=== PATIENT | male | born 1955 | race African-American/Black ===

== ENCOUNTER 2017-09-22 21:37 | Inpatient (IN) | payer MEDICAID ==
[~2017-09-22] VITALS: Ht 185.4 cm; Wt 96.2 kg
[2017-09-22] MEDS ORDERED: ATORVASTATIN CA10 MG GT (21:52)
[2017-09-22] MEDS ORDERED: ACETAMINOP160 MG/5 M GT (21:52)
[2017-09-22] MEDS ORDERED: JEVITY 1.2 CA1500 ML GT (21:52)
[2017-09-22] MEDS ORDERED: ELIQUIS5 MG GT (21:52)
[2017-09-22] MEDS ORDERED: GUAIFENESIN-CO118 M1 GT (21:52)
[2017-09-22] MEDS ORDERED: DUONEB 0.5-3(2.53 ML HHN (21:52)
[2017-09-22] MEDS ORDERED: KEPPRA LIQ100 MG/1 M ORAL (21:52)
[2017-09-22] MEDS ORDERED: TEGRETOL200 MG PO (21:52)
[2017-09-22] MEDS ORDERED: levETIRAcetam 500mg/NS100ml 100 ML IVPB ONE (22:00)
[2017-09-22 22:13] LABS: BASOPHILS % (AUTO) 0.4 % (0.0-2.0); EOSINOPHILS % (AUTO) 0.1 % (0.0-3.0); HEMATOCRIT 40.1 % (42.0-52.0); HEMOGLOBIN 12.6 G/DL (14.2-18.0); LYMPHOCYTES % (AUTO) 15.6 % (20.0-45.0); MEAN CORPUSCULAR VOLUME 80 FL (80-99); MONOCYTES % (AUTO) 4.3 % (1.0-10.0); NEUTROPHILS % (AUTO) 79.7 % (45.0-75.0); PLATELET COUNT 103 K/UL (150-450); RED BLOOD COUNT 5.02 M/UL (4.70-6.10); RED CELL DISTRIBUTION WIDTH 16.6 % (11.6-14.8); WHITE BLOOD COUNT 9.1 K/UL (4.8-10.8)
[2017-09-22 22:14] LABS: ANION GAP 19 mmol/L (5-15); BLOOD UREA NITROGEN 26 mg/dL (7-18); CALCIUM 9.3 MG/DL (8.5-10.1); CARBON DIOXIDE 24 MMOL/L (21-32); CHLORIDE 96 MMOL/L (98-107); CREATININE 0.8 MG/DL (0.55-1.30); POTASSIUM 3.3 MMOL/L (3.5-5.1); SODIUM 139 MMOL/L (136-145)
[2017-09-22] MEDS ORDERED: Albuterol ud Inhalation HHN ONE (22:15)
[2017-09-22 22:30] LABS: ALANINE AMINOTRANSFERASE 69 U/L (12-78); ALBUMIN/GLOBULIN RATIO 0.6 (1.0-2.7); ALKALINE PHOSPHATASE 215 U/L (46-116); ASPARTATE AMINO TRANSFERASE 45 U/L (15-37); BILIRUBIN,TOTAL 0.2 MG/DL (0.2-1.0); CKMB 4.6 NG/ML (0.0-3.6); CREATINE KINASE 64 U/L (26-308)
[2017-09-22 23:00] VITALS: BP 93/54
[2017-09-22] MEDS ORDERED: Cefepime HCl 1 GM in D5W 55 ML IVPB ONE (23:00)
[2017-09-23] VITALS (7 sets, daily range): BP systolic 134–173; BP diastolic 59–82
--- NOTE | 2017-09-23 01:43 | Emergency Room Report ---
History of Present Illness General Chief Complaint: Seizure Source: Family Member, Medical Record, EMS Present Illness HPI This is a 62-year-old male who is a group home patient is bedbound. He has multiple medical problems including CVA and seizure. He presents with chief complaint of seizure. According to group home staff, he had a seizure for about 10 minutes. He was given Versed intranasally and 5 mg IV. He was brought here and was sedated and unable to give a response. Similar symptom in the past. No complaint of fever chills. No nausea no vomiting. Allergies: Coded Allergies: PHENYTOIN (Unverified Allergy, Unknown, 09/22/17) Patient History Past Medical History: see triage record, old chart reviewed, DM, HTN, CVA/TIA, seizures Past Surgical History: other Pertinent Family History: none Social History: Denies: smoking Immunizations: other Reviewed Nursing Documentation: PMH: Agreed; PSxH: Agreed Nursing Documentation-PMH Past Medical History: No History, Except For Hx Hypertension: Yes Hx Gastrointestinal Problems: Yes - gtube, peptic ulcer, Hx Cerebrovascular Accident: Yes - TIA, left dominant side weakness Hx Seizures: Yes - unspecified convulsions Review of Systems All Other Systems: limited - Nonverbal Physical Exam Vital Signs Date Time Temp Pulse Resp B/P (MAP) Pulse Ox O2 Delivery O2 Flow Rate FiO2 09/22/17 21:22 106 30 138/70 88 Non-Rebreather 15.0 09/22/17 22:32 100 vitals with hypoxia Sp02 EP Interpretation: abnormal General Appearance: moderate distress, Stupor Head: normocephalic, atraumatic Eyes: right eye other - Right eye is cloudy ENT: dry mucus membranes Neck: full range of motion, supple, no meningismus Respiratory: respiratory distress, decreased breath sounds, rhonchi - Right side Cardiovascular #1: regular rate, rhythm, no murmur Gastrointestinal: normal bowel sounds, non tender, no mass, no organomegaly, no bruit, non-distended Genitourinary: normal inspection Musculoskeletal: other - Stiff. No edema Neurologic: other - Upper extremities with no response to painful stimuli. lower extremeties withdraw to painful stimuli. Psychiatric: other - No response Skin: warm/dry Procedures Critical Care Time Critical Care Time Critical care is mandated in this patient who presented with respiratory failure requiring BiPAP. Patient require my urgent intervention to attenuate the risks of metabolic collapse which may lead to cardiovascular collapse and . Critical care time is 35 minutes excluding any reportable procedure. Critical care time included evaluation, multiple reevaluation, looking at old charts, interpreting laboratory and diagnostic data, discussing case with patient and family and consultants, and charting. Medical Decision Making Diagnostic Impression: Primary Impression: Epileptic seizure, generalized Additional Impressions: Sepsis Qualified Codes: A41.9 - Sepsis, unspecified organism Healthcare-associated pneumonia Respiratory failure with hypoxia Qualified Codes: J96.21 - Acute and chronic respiratory failure with hypoxia Aspiration pneumonia Qualified Codes: J69.0 - Pneumonitis due to inhalation of food and vomit Lactic acidosis ER Course Patient had seizure. He also has aspiration pneumonia. Antibiotic started. I try to pass a Alvarez but unable to pass multiple different size Avlarez. His initial lactic acid may be secondary to seizure. Improved after IV fluid. Because of the BiPAP and hypoxia, he is unstable for transfer. Will admit here under the service of Dr. Sharpe. Laboratory Tests Test 09/22/17 21:45 09/22/17 22:39 09/22/17 23:40 White Blood Count 9.1 K/UL (4.8-10.8) Red Blood Count 5.02 M/UL (4.70-6.10) Hemoglobin 12.6 G/DL (14.2-18.0) L Hematocrit 40.1 % (42.0-52.0) L Mean Corpuscular Volume 80 FL (80-99) Mean Corpuscular Hemoglobin 25.0 PG (27.0-31.0) L Mean Corpuscular Hemoglobin Concent 31.4 G/DL (32.0-36.0) L Red Cell Distribution Width 16.6 % (11.6-14.8) H Platelet Count 103 K/UL (150-450) L Mean Platelet Volume 10.5 FL (6.5-10.1) H Neutrophils (%) (Auto) 79.7 % (45.0-75.0) H Lymphocytes (%) (Auto) 15.6 % (20.0-45.0) L Monocytes (%) (Auto) 4.3 % (1.0-10.0) Eosinophils (%) (Auto) 0.1 % (0.0-3.0) Basophils (%) (Auto) 0.4 % (0.0-2.0) Prothrombin Time 10.9 SEC (9.30-11.50) Prothromb Time International Ratio 1.0 (0.9-1.1) Activated Partial Thromboplast Time 33 SEC (23-33) Sodium Level 139 MMOL/L (136-145) Potassium Level 3.3 MMOL/L (3.5-5.1) L Chloride Level 96 MMOL/L (98-107) L Carbon Dioxide Level 24 MMOL/L (21-32) Anion Gap 19 mmol/L (5-15) H Blood Urea Nitrogen 26 mg/dL (7-18) H Creatinine 0.8 MG/DL (0.55-1.30) Estimat Glomerular Filtration Rate > 60 mL/min (>60) Glucose Level 112 MG/DL (74-106) H Lactic Acid Level 12.40 mmol/L (0.4-2.0) H 2.30 mmol/L (0.66-2.22) H Calcium Level 9.3 MG/DL (8.5-10.1) Total Bilirubin 0.2 MG/DL (0.2-1.0) Aspartate Amino Transf (AST/SGOT) 45 U/L (15-37) H Alanine Aminotransferase (ALT/SGPT) 69 U/L (12-78) Alkaline Phosphatase 215 U/L (46-116) H Total Creatine Kinase 64 U/L (26-308) Creatine Kinase MB 4.6 NG/ML (0.0-3.6) H Creatine Kinase MB Relative Index 7.1 Troponin I 0.018 ng/mL (0.000-0.056) Total Protein 8.2 G/DL (6.4-8.2) Albumin 3.0 G/DL (3.4-5.0) L Globulin 5.2 g/dL Albumin/Globulin Ratio 0.6 (1.0-2.7) L Carbamazepine (Tegretol) Level 6.8 ug/mL (4.0-12.0) Arterial Blood pH 7.330 (7.350-7.450) Arterial Blood Partial Pressure CO2 54.2 mmHg (35.0-45.0) H Arterial Blood Partial Pressure O2 57.5 mmHg (75.0-100.0) L Arterial Blood HCO3 27.9 mmol/L (22.0-26.0) H Arterial Blood Oxygen Saturation 86.7 % (92.0-98.0) L Arterial Blood Base Excess 1.1 Jed Test Positive Lab Results Impression labs with lactic acidosis EKG Diagnostic Results Rate: tachycardiac Rhythm: NSR ST Segments: other - NSST changes Rhythm Strip Diag. Results Rhythm Strip Time: 01:41 EP Interpretation: yes Rate: 73 Rhythm: NSR, no PVC's, no ectopy Chest X-Ray Diagnostic Results Chest X-Ray Diagnostic Results : Chest X-Ray Ordered: Yes # of Views/Limited/Complete: 1 View Indication: Shortness of Breath EP Interpretation: Yes Interpretation: no effusion, no pneumothorax, other - RLL interstitial infiltrates Impression: Other Electronically Signed by: Kody Marques MD CT/MRI/US Diagnostic Results CT/MRI/US Diagnostic Results : Imaging Test Ordered: CT head Impression Read by radiologist. chronic changes. Last Vital Signs Date Time Temp Pulse Resp B/P (MAP) Pulse Ox O2 Delivery O2 Flow Rate FiO2 09/23/17 01:06 15.0 80 09/23/17 01:06 80 29 100 Facial 09/22/17 21:22 138/70 Status: improved Disposition: ADMITTED INPATIENT Condition: Serious Referrals: NOT CHOSEN NAVYA/,REFERRING (PCP) KODY MARQUES M.D. Sep 23, 2017 01:43
[2017-09-23] MEDS ORDERED: Acetaminophen 650mg/20.3ml GT PRN ×2 (03:45)
[2017-09-23 03:47] LABS: BILIRUBIN, URINE NEGATIVE (NEGATIVE); GLUCOSE, URINE (UA) NEGATIVE (NEGATIVE); KETONES,URINE NEGATIVE (NEGATIVE); LEUKOCYTE ESTERASE ,URINE 3+ (NEGATIVE); NITRITE,URINE NEGATIVE (NEGATIVE); PH,URINE 7 (4.5-8.0); PROTEIN,URINE 4+ (NEGATIVE); UROBILINOGEN,URINE NORMAL MG/DL (0.0-1.0)
[2017-09-23 03:52] LABS: APPEARANCE,URINE CLOUDY; COLOR,URINE YELLOW
[2017-09-23] MEDS: carBAMazepine 200mg tab GT SCH ×3 (05:48→21:06)
[2017-09-23] MEDS: Albuterol/Ipratropium 3ml neb HHN SCH ×4 (06:51→23:40)
[2017-09-23] MEDS: LORazepam Inj 2mg/ml 1ml IV PRN ×2 (07:09→12:57)
[2017-09-23] MEDS ORDERED: Cefepime 2gm in D5W 55ml IVPB SCH (09:00)
[2017-09-23] MEDS: Eliquis 2.5mg tablet GT SCH ×2 (09:01→17:50)
[2017-09-23] MEDS: levETIRAcetam 500mg/5ml Liquid GT SCH ×2 (09:01→17:49)
--- NOTE | 2017-09-23 09:29 | Diagnostic Imaging Report ---
Indication: Seizure Technique: Continuous helical CT scanning of the head was performed utilizing automated exposure control without intravenous contrast material. Axial and coronal reconstructions were obtained. Comparison: None CT dose: Total DLP 1467.58 mGycm; CTDI vol 70.38 mGy Findings: There is no acute intracranial hemorrhage. No midline shift. There is severe encephalomalacia with CSF attenuation involving the right frontal, parietal and temporal lobes. Some encephalomalacia is noted in the left frontal lobe as well. Findings are likely due to chronic ischemic, postoperative or posttraumatic changes. Cannot exclude acute on chronic ischemia. Clinical correlation and follow-up recommended. There is ex vacuo dilatation of the lateral ventricles. There is prior right frontoparietal craniotomy. No acute depressed calvarial fracture. Mastoid air cells are clear. Paranasal sinuses grossly clear. IMPRESSION: Extensive chronic-appearing postischemic/postoperative/posttraumatic changes as above. Cannot exclude acute on chronic ischemia. Clinical correlation recommended. More sensitive evaluation with MRI can be obtained as clinically indicated. This corresponds with the statrad preliminary report. The CT scanner at [facility] is accredited by the [employer] and the scans are performed using protocols designed to limit radiation exposure to as low as reasonably achievable to attain images of sufficient resolution adequate for diagnostic evaluation.
--- NOTE | 2017-09-23 12:00 | History and Physical Report ---
DATE OF ADMISSION: 09/23/2017 HISTORY OF PRESENT ILLNESS: This is a 62-year-old male who is a retirement resident. He was brought to the hospital with seizures. He was seen and evaluated by the ER physician. He was also thought to have pneumonia. He was placed on BiPAP and admitted to [facility]. Overnight, the patient has had several seizures. He has received Versed and also Ativan this morning. He has been resumed on his home medications. MEDICATIONS: His home medications include Tylenol, DuoNebs, Eliquis, Lipitor, Tegretol, Keppra. PAST MEDICAL HISTORY: Notable for chronic gastrostomy, seizure disorder, hypertension, hyperlipidemia, osteoporosis, chronic anticoagulation use, disease, history of GI hemorrhage, previous UTI, previous CVA, hemiplegia of left side. ALLERGIES: Listed to Dilantin . PAST SURGERIES: Gastrostomy tube placement only. PHYSICAL EXAMINATION: GENERAL: Reveals a 62-year-old male. At this time, he is poorly responsive. He received Ativan earlier today. He is on BiPAP. VITAL SIGNS: Blood pressure at this time is 130/60, heart rate is 64, respirations 18, O2 saturation is 92% on BiPAP. HEENT: Unremarkable. CHEST: Clear breath sounds bilaterally with normal heart sounds. ABDOMEN: Soft. EXTREMITIES: There is no appreciable edema. SKIN: There is a G-tube noted. LABORATORY DATA: Lab testing shows hemoglobin 12.6, white count is normal, platelet count is 103,000. Chemistries are notable for potassium 3.3, creatinine 0.8, BUN 26, lactic acid 12.4 now dropped to 2.3, alkaline phosphatase 215, AST 45, albumin of 3. Coags are negative. Urinalysis shows too numerous to count . Most recent ABG, pH 7.13, pCO2 92, pO2 72. IMPRESSION: 1. Respiratory acidosis. 2. Acute respiratory failure. 3. Sepsis. 4. UTI. 5. Probable pneumonia. 6. Seizure disorder. 7. Previous CVA. 8. Aspiration pneumonia. 9. Hypertension. DISCUSSION: Presently, the patient is doing poorly on BiPAP and I suspect he will require to be intubated. He has received Ativan recently. I will check another ABG. If the patient continues to fail, he will be a candidate for intubation. I will contact the patient's family and discuss. Continue broad-spectrum antibiotics. I have consulted ID as well as Neurology. We will continue Keppra. We will follow carefully. Ochoa Sharpe M.D. DR: Reta JOB#: [id number] CC:
--- NOTE | 2017-09-23 12:48 | Diagnostic Imaging Report ---
Indication: Chest pain, seizure Technique: XRAY Chest 1v Comparison: None Findings: Heart size within normal limits. Mediastinal contours are sharp. There is asymmetric interstitial opacification and patchy opacities at the medial right base. No pleural effusion or pneumothorax. There is scoliosis and degenerative change of the spine. No acute osseous abnormality. IMPRESSION: Asymmetric right-sided opacities, most pronounced at the medial right base. Correlate clinically for pneumonia. Given history of seizure, question aspiration.
--- NOTE | 2017-09-23 14:00 | Cardiology Report ---
APPROVED REPORT EKG Measurement Heart [id number] Sinus tachycardia Nonspecific ST and T wave abnormality Abnormal ECG
--- NOTE | 2017-09-23 15:06 | Infectious Diseases Prog Note ---
Assessment/Plan Assessment/Plan Full consult dictated: A) 1) pna, ? aspiration, ? cap, ? HCAP 2) ams, sepsis, hypothermia 3) bipap 4) pmh noted P) 1) zosyn, vancomycin, azithromycin 2) check sputum culture, labs and chest x-ray 3) thank you Subjective Allergies: Coded Allergies: PHENYTOIN (Unverified Allergy, Unknown, 09/22/17) Objective Vital Signs Last 24 Hour Vital Signs Date Time Temp Pulse Resp B/P (MAP) Pulse Ox O2 Delivery O2 Flow Rate FiO2 09/23/17 12:52 96 40 94 Bi-pap 70 09/23/17 12:46 89 34 97 Bi-pap 70 09/23/17 12:44 86 34 97 Facial 70 09/23/17 12:00 70 09/23/17 12:00 75 36 169/79 (109) 96 09/23/17 12:00 Bi-pap 16.0 09/23/17 12:00 72 09/23/17 11:04 75 37 96 Facial 70 09/23/17 11:00 70 09/23/17 08:47 67 17 92 Facial 70 09/23/17 08:00 70 09/23/17 08:00 92.0 65 28 147/76 (99) 93 92.0 09/23/17 08:00 Bi-pap 16.0 09/23/17 07:51 69 09/23/17 07:01 95 31 98 Bi-pap 70 09/23/17 06:52 86 28 94 Facial 70 09/23/17 06:51 86 28 94 Bi-pap 70 09/23/17 06:46 Bi-pap 09/23/17 04:42 69 37 95 Facial 70 09/23/17 04:13 70 09/23/17 04:00 96.0 70 30 173/82 (112) 100 96.0 09/23/17 04:00 80 09/23/17 03:20 95.0 71 14 134/63 100 15.0 70 95.0 09/23/17 02:48 74 14 100 Facial 70 09/23/17 02:35 95.0 71 29 134/63 100 15.0 70 95.0 09/23/17 01:43 100 70 09/23/17 01:38 15.0 70 09/23/17 01:06 15.0 80 09/23/17 01:06 80 29 100 Facial 80 09/23/17 01:00 95.0 79 31 143/59 100 Bi-pap 15.0 80 95.0 09/22/17 23:26 87 31 93 Facial 100 09/22/17 23:00 15.0 100 09/22/17 23:00 95.0 88 31 93/54 100 Bi-pap 15.0 100 95.0 09/22/17 22:50 93 31 88 Non-Rebreather 15.0 100 09/22/17 22:33 93 31 88 Non-Rebreather 15.0 100 09/22/17 22:32 93 31 Non-Rebreather 15.0 100 09/22/17 21:40 106 30 Non-Rebreather 15.0 09/22/17 21:22 106 30 138/70 88 Non-Rebreather 15.0 Height (Feet): 6 Height (Inches): 1.00 Weight (Pounds): 180 Microbiology Date/Time Source Procedure Growth Status 09/22/17 23:44 Rectum Received Laboratory Tests Test 09/22/17 21:45 09/22/17 22:39 09/22/17 23:40 09/23/17 03:33 White Blood Count 9.1 K/UL (4.8-10.8) Red Blood Count 5.02 M/UL (4.70-6.10) Hemoglobin 12.6 G/DL (14.2-18.0) L Hematocrit 40.1 % (42.0-52.0) L Mean Corpuscular Volume 80 FL (80-99) Mean Corpuscular Hemoglobin 25.0 PG (27.0-31.0) L Mean Corpuscular Hemoglobin Concent 31.4 G/DL (32.0-36.0) L Red Cell Distribution Width 16.6 % (11.6-14.8) H Platelet Count 103 K/UL (150-450) L Mean Platelet Volume 10.5 FL (6.5-10.1) H Neutrophils (%) (Auto) 79.7 % (45.0-75.0) H Lymphocytes (%) (Auto) 15.6 % (20.0-45.0) L Monocytes (%) (Auto) 4.3 % (1.0-10.0) Eosinophils (%) (Auto) 0.1 % (0.0-3.0) Basophils (%) (Auto) 0.4 % (0.0-2.0) Prothrombin Time 10.9 SEC (9.30-11.50) Prothromb Time International Ratio 1.0 (0.9-1.1) Activated Partial Thromboplast Time 33 SEC (23-33) Sodium Level 139 MMOL/L (136-145) Potassium Level 3.3 MMOL/L (3.5-5.1) L Chloride Level 96 MMOL/L (98-107) L Carbon Dioxide Level 24 MMOL/L (21-32) Anion Gap 19 mmol/L (5-15) H Blood Urea Nitrogen 26 mg/dL (7-18) H Creatinine 0.8 MG/DL (0.55-1.30) Estimat Glomerular Filtration Rate > 60 mL/min (>60) Glucose Level 112 MG/DL (74-106) H Lactic Acid Level 12.40 mmol/L (0.4-2.0) H 2.30 mmol/L (0.66-2.22) H Calcium Level 9.3 MG/DL (8.5-10.1) Total Bilirubin 0.2 MG/DL (0.2-1.0) Aspartate Amino Transf (AST/SGOT) 45 U/L (15-37) H Alanine Aminotransferase (ALT/SGPT) 69 U/L (12-78) Alkaline Phosphatase 215 U/L (46-116) H Total Creatine Kinase 64 U/L (26-308) Creatine Kinase MB 4.6 NG/ML (0.0-3.6) H Creatine Kinase MB Relative Index 7.1 Troponin I 0.018 ng/mL (0.000-0.056) Total Protein 8.2 G/DL (6.4-8.2) Albumin 3.0 G/DL (3.4-5.0) L Globulin 5.2 g/dL Albumin/Globulin Ratio 0.6 (1.0-2.7) L Carbamazepine (Tegretol) Level 6.8 ug/mL (4.0-12.0) Arterial Blood pH 7.330 (7.350-7.450) Arterial Blood Partial Pressure CO2 54.2 mmHg (35.0-45.0) H Arterial Blood Partial Pressure O2 57.5 mmHg (75.0-100.0) L Arterial Blood HCO3 27.9 mmol/L (22.0-26.0) H Arterial Blood Oxygen Saturation 86.7 % (92.0-98.0) L Arterial Blood Base Excess 1.1 Jed Test Positive Urine Color Yellow Urine Appearance Cloudy Urine pH 7 (4.5-8.0) Urine Specific [place] 1.010 (1.005-1.035) Urine Protein 4+ (NEGATIVE) H Urine Glucose (UA) Negative (NEGATIVE) Urine Ketones Negative (NEGATIVE) Urine Occult Blood 5+ (NEGATIVE) H Urine Nitrite Negative (NEGATIVE) Urine Bilirubin Negative (NEGATIVE) Urine Urobilinogen Normal MG/DL (0.0-1.0) Urine Leukocyte Esterase 3+ (NEGATIVE) H Urine RBC 15-20 /HPF (0 - 0) H Urine WBC Tntc /HPF (0 - 0) H Urine Squamous Epithelial Cells Few /LPF (NONE/OCC) Urine Bacteria Many /HPF (NONE) H Test 09/23/17 03:54 09/23/17 08:25 09/23/17 09:40 Lactic Acid Level 1.20 mmol/L (0.4-2.0) Arterial Blood pH 7.134 (7.350-7.450) 7.276 (7.350-7.450) Arterial Blood Partial Pressure CO2 92.3 mmHg (35.0-45.0) *H 65.6 mmHg (35.0-45.0) *H Arterial Blood Partial Pressure O2 72.0 mmHg (75.0-100.0) L 66.5 mmHg (75.0-100.0) L Arterial Blood HCO3 30.3 mmol/L (22.0-26.0) H 29.9 mmol/L (22.0-26.0) H Arterial Blood Oxygen Saturation 88.4 % (92.0-98.0) L 89.9 % (92.0-98.0) L Arterial Blood Base Excess -1.3 1.4 Jed Test Positive Positive Current Medications Medications (Trade) Dose Ordered Sig/Reid Route PRN Reason Start Time Stop Time Status Last Admin Dose Admin Acetaminophen (Tylenol) 320 mg Q4H PRN GT MILD pain 1-3/TEMP >100.5 09/23/17 03:45 10/23/17 03:44 Acetaminophen (Tylenol) 640 mg Q4H PRN GT moderate pain 09/23/17 03:45 10/23/17 03:44 Albuterol/ Ipratropium (Albuterol/ Ipratropium) 3 ml Q6HRT HHN 09/23/17 07:00 09/28/17 06:59 09/23/17 12:46 Apixaban (Eliquis) 5 mg BID GT 09/23/17 09:00 10/23/17 08:59 09/23/17 09:01 Atorvastatin Calcium (Lipitor) 10 mg BEDTIME GT 09/23/17 21:00 10/23/17 20:59 Carbamazepine (TEGretol) 300 mg Q8HR GT 09/23/17 06:00 10/23/17 05:59 09/23/17 13:30 Cefepime HCl 2 gm/ Dextrose 55 ml @ 110 mls/hr Q8H IVPB 09/23/17 09:00 09/30/17 08:59 09/23/17 09:03 Dextrose (Dextrose 50%) 25 ml STAT PRN IV Hypoglycemia 09/23/17 04:00 10/23/17 03:59 Dextrose (Dextrose 50%) 50 ml STAT PRN IV Hypoglycemia 09/23/17 04:00 10/23/17 03:59 Levetiracetam (Keppra) 750 mg BID GT 09/23/17 09:00 10/23/17 08:59 09/23/17 09:01 Lorazepam (Ativan 2mg/ml 1ml) 1 mg Q4H PRN IV For Seizures 09/23/17 04:30 09/30/17 04:29 09/23/17 12:57 Sodium Chloride 1,000 ml @ 75 mls/hr [id number] IVLG 09/23/17 04:48 10/23/17 04:47 09/23/17 05:32 Anibal Murphy MD Sep 23, 2017 15:06
[2017-09-23] MEDS ORDERED: Tubing IV Secondary IV ONE (15:33)
[2017-09-23] MEDS: Vancomycin 1gm/D5W 275ml IVPB SCH ×2 (17:35)
[2017-09-23] MEDS: Azithromycin 500 MG in D5W 275 ML IV SCH (17:35)
--- NOTE | 2017-09-23 20:18 | Consultation ---
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 He was hospitalized for having seizures at his NH. He was discovered to have a UTI and pneumonia. He has had recurrent G-TC seizures and has been given IV Ativan following each seizure and at this time cannot be aroused. ON EXAM: Comatose No blink to threat. EOM+ on OCM Right corneal nebula. Left pupil 3 mm NR. No movement on DP other than reflex withdrawal in LEs IMPRESSION: Breakthrough seizures in patient with prior brain injury and now superimposed UTI and pneumonia. REC: Keppra 1.5 G IV q 12 H. Ativan only for status and not after every seizure - made it clear to nurse. Correct respiratory status. Rx of infectious processes. Observe. Watson Trevizo M.D., M.S.P.H. WATSON TREVIZO Sep 23, 2017 20:18
[2017-09-23] MEDS: DEXTROSE IV SCH (21:45)
[2017-09-23] MEDS: LEVETIRACETAM IV SCH (21:45)
[2017-09-24] VITALS: BP 149/77
--- NOTE | 2017-09-24 00:15 | Consultation ---
DATE OF CONSULTATION: 09/23/2017 NEUROLOGY CONSULTATION CONSULTING PHYSICIAN: Salas Trevizo M.D. REQUESTING PHYSICIAN: Ochoa Sharpe M.D. HISTORY: Mr. 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 He also has left-sided weakness and a seizure disorder and lives in a prison. At his prison, he was noted to have seizures and as a result of that, he was transferred to [facility]. In the emergency room, he was discovered to have urinary tract infection and pneumonia and has since been admitted. Since he has been here, he has continued to have seizures and every time, he has a seizure, he is given intravenous Ativan following the event. At this point in time, he is unarousable. Thus, further history cannot be obtained. PAST MEDICAL HISTORY: Significant for 1. 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 2. Left-sided weakness. 3. Seizure disorder. 4. A feeding gastrostomy. 5. Hypertension. 6. Dyslipidemia. 7. Osteoporosis. 8. Chronic anticoagulation. FAMILY HISTORY: Unavailable. PERSONAL HISTORY: Unavailable other than him living in a prison. MEDICATIONS: At his prison included Tylenol, DuoNeb, Eliquis, Lipitor, Tegretol and Keppra. Present medications include Lipitor, azithromycin, vancomycin, Zosyn, Eliquis, Keppra 750 mg via G-tube q.12 h., carbamazepine 300 mg q.8 h. via G tube, lorazepam p.r.n., and Tylenol p.r.n. PHYSICAL EXAMINATION: GENERAL: He is a well-developed, well-nourished, black gentleman, lying in bed, with ongoing BiPAP. VITAL SIGNS: Pulse 72/minute, blood pressure 174/76 mmHg, respirations 21 per minute, temperature not measured recently. HEAD: Normocephalic with right frontotemporoparietal craniotomy. EENT: examination could not be performed because he was on a BiPAP mask. NECK: No neck rigidity was observed. NEUROLOGICAL EXAMINATION: MENTAL STATUS EXAMINATION: He was comatose and did not respond even to deep painful stimuli. Further mental status testing was thus impossible. SPEECH: Could not be tested. LANGUAGE: Could not be tested. CRANIAL NERVE EXAMINATION: II: He did not blink to threat. He had a right-sided corneal nebula. III, IV & : External ocular movements were present on oculocephalic maneuvers. The right pupil could not be visualized. The left pupil was 3 mm in diameter and did not react to light. V & VII: The corneal reflexes were present bilaterally, but the left-sided reflex was diminished compared to the right. VIII: He did not respond to sounds and had no nystagmus. IX & X: Could not be tested because he was on a BiPAP mask. XI: The sternocleidomastoids and trapezii did not function. XII: Could not be tested. MOTOR SYSTEM: The tone was normal in all four extremities. Examination of muscle mass revealed mild wasting of the left upper and lower extremities. Examination of power could not be performed because even on applying deep painful stimuli, the only movements seen were reflex withdrawal in the lower extremities. SENSORY EXAMINATION: He did not respond to deep pain, other than reflex withdrawal in the lower extremities. REFLEXES: 0 at the biceps, triceps, brachioradialis, knees, and ankles. The plantar responses were extensor bilaterally. COORDINATION, STANCE & GAIT: Could not be tested. DIAGNOSTIC IMPRESSION: 1. Mr. 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 He was hospitalized after having seizures at his prison. Since he has been admitted to the hospital, he has been discovered to have urinary tract infection and pneumonia. He has continued to have recurrent seizures in the hospital with his last seizure at approximately 1 p.m. He has been given intravenous Ativan following each seizure and at this point in time, cannot be aroused. 2. On neurological examination at this time, he is comatose. He does not blink to threat. His eye movements were present on oculocephalic maneuvers. The corneal reflexes are present with the left side reflex diminished compared to the right. His left pupil is 3 mm and nonreactive. His right pupil cannot be visualized. He does not move to deep pain except for reflex withdrawal in both lower extremities, and his deep tendon reflexes are absent. His plantar responses are extensor bilaterally. 3. The CT scan of the brain without contrast reveals severe encephalomalacia in the right frontotemporoparietal area and less severe encephalomalacia in the left frontal area. 4. His latest laboratory data revealed that he is anemic with a hemoglobin of 12.6 G. His chemistry panel reveals that his BUN is elevated to 26, his glucose is elevated at 112, his AST is elevated at 45, his alkaline phosphatase is elevated at 215, and his albumin is low at 3.0. His lactic acid was elevated to 12.4 yesterday and is 1.2 today. His carbamazepine level was therapeutic at 6.8. His urinalysis revealed 3+ leukocyte esterase, 15 to 20 red blood cells per high-power field, and too numerous to count white blood cells per high-power field with many bacteria. 5. His chest x-ray revealed asymmetric right-sided opacities most pronounced at the medial right base consistent with pneumonic process. 6. The patient's history, neurological examination, laboratory data, and imaging studies are most compatible with breakthrough seizures in a patient who has had severe prior brain injury and an underlying seizure disorder, who was on relatively low doses of anticonvulsants and now has a superimposed urinary tract infection and pneumonia. RECOMMENDATIONS: 1. Agree with management thus far. 2. The patient's anticonvulsant will be changed to Keppra 1.5 g intravenously taken every 12 hours. 3. His Tegretol will be continued at his present dose. 4. Ativan should only be given for status epilepticus and not for every single seizure. It was made very clear to the nurse that should be done. 5. Correction of respiratory status as per Dr. Sharpe. 6. Treatment of infectious processes as per Dr. Murphy. 7. The patient will be observed closely and depending on how he fares over the next day or so, further recommendations will be given. Thank you for entrusting me with the care of Mr. Guo. I shall follow him with you. Salas Trevizo M.D., M.S.P.H. DR: ALEX JOB#: [id number] MTDD
[2017-09-24] MEDS: Vancomycin 1gm/D5W 275ml IVPB SCH ×4 (01:09→08:07)
[2017-09-24 04:00] VITALS: BP 137/68
[2017-09-24] MEDS: carBAMazepine 200mg tab GT SCH ×3 (05:16→21:54)
[2017-09-24 05:17] LABS: HEMOGLOBIN 12.4 G/DL (14.2-18.0); MEAN CORPUSCULAR VOLUME 80 FL (80-99); PLATELET COUNT 95 K/UL (150-450); RED CELL DISTRIBUTION WIDTH 17.1 % (11.6-14.8); WHITE BLOOD COUNT 14.3 K/UL (4.8-10.8)
[2017-09-24 05:43] LABS: ANION GAP 12 mmol/L (5-15); BLOOD UREA NITROGEN 24 mg/dL (7-18); CALCIUM 8.6 MG/DL (8.5-10.1); CARBON DIOXIDE 25 MMOL/L (21-32); CHLORIDE 103 MMOL/L (98-107); CREATININE 0.7 MG/DL (0.55-1.30); POTASSIUM 3.3 MMOL/L (3.5-5.1); SODIUM 140 MMOL/L (136-145)
[2017-09-24] MEDS: Albuterol/Ipratropium 3ml neb HHN SCH ×3 (07:43→19:53)
[2017-09-24] MEDS: Eliquis 2.5mg tablet GT SCH ×2 (08:07→17:13)
--- NOTE | 2017-09-24 08:30 | Pulmonology Progress Note ---
Assessment/Plan Assessment/Plan IMPRESSION: 1. Respiratory acidosis. 2. Acute respiratory failure. 3. Sepsis. 4. UTI. 5. Probable pneumonia. 6. Seizure disorder. 7. Previous CVA. 8. Aspiration pneumonia. 9. Hypertension. DISCUSSION: ABG better yesterday on BiPAP Will check again today Continue broad-spectrum antibiotics. ID following' Continue Tegretol and continue Keppra. I will follow carefully. Neuro consult noted Having hypoglycemic episodes; will start dextrose Called cardiology consult for bradycardia Subjective Interval Events: None Constitutional: Reports: no symptoms HEENT: Repors: no symptoms Respiratory: Reports: no symptoms Cardiovascular: Reports: no symptoms Gastrointestinal/Abdominal: Reports: no symptoms Allergies: Coded Allergies: PHENYTOIN (Unverified Allergy, Unknown, 09/22/17) Objective Last 24 Hour Vital Signs Date Time Temp Pulse Resp B/P (MAP) Pulse Ox O2 Delivery O2 Flow Rate FiO2 09/24/17 07:53 104 32 100 Bi-pap 70 09/24/17 07:43 104 35 100 Bi-pap 70 09/24/17 07:41 104 35 100 Full Face 70 09/24/17 05:29 96 30 99 Full Face 70 09/24/17 04:00 70 09/24/17 04:00 92 09/24/17 04:00 Bi-pap 16.0 09/24/17 04:00 97.5 93 26 137/68 (91) 92 97.5 09/24/17 02:57 96 32 97 Full Face 70 09/24/17 00:18 61 21 100 Full Face 70 09/24/17 00:00 69 09/24/17 00:00 Bi-pap 16.0 09/24/17 00:00 70 09/24/17 00:00 95.7 70 24 149/77 (101) 100 95.7 09/23/17 23:52 76 39 100 Bi-pap 70 09/23/17 23:40 62 27 100 Bi-pap 70 09/23/17 22:58 61 21 100 Facial 70 09/23/17 21:15 66 19 100 Facial 70 09/23/17 20:00 95.5 79 29 140/73 (95) 96 95.5 09/23/17 20:00 Bi-pap 16.0 09/23/17 20:00 70 09/23/17 20:00 82 09/23/17 19:12 86 39 100 Bi-pap 70 09/23/17 19:02 72 21 100 Facial 70 09/23/17 19:02 73 21 100 Bi-pap 70 09/23/17 17:07 80 36 98 Facial 70 09/23/17 16:00 Bi-pap 16.0 09/23/17 16:00 82 09/23/17 16:00 79 38 147/76 (99) 99 09/23/17 16:00 70 09/23/17 15:08 84 33 96 Facial 70 09/23/17 12:52 96 40 94 Bi-pap 70 09/23/17 12:46 89 34 97 Bi-pap 70 09/23/17 12:44 86 34 97 Facial 70 09/23/17 12:00 70 09/23/17 12:00 75 36 169/79 (109) 96 09/23/17 12:00 Bi-pap 16.0 09/23/17 12:00 72 09/23/17 11:04 75 37 96 Facial 70 09/23/17 11:00 70 09/23/17 08:47 67 17 92 Facial 70 Intake and Output 09/23/17 09/24/17 19:00 07:00 Intake Total 913.708 ml 1545.000 ml Output Total 550 ml 250 ml Balance 363.708 ml 1295.000 ml Intake IV Total 913.708 ml 1495.000 ml Other 50 ml Output Urine Total 550 ml 250 ml General Appearance: no acute distress HEENT: normocephalic Respiratory/Chest: chest wall non-tender, lungs clear Cardiovascular: normal peripheral pulses, normal rate Abdomen: normal bowel sounds, soft, non tender Microbiology Date/Time Source Procedure Growth Status 09/22/17 21:45 Blood Blood Culture - Preliminary NO GROWTH AFTER 24 HOURS Resulted 09/22/17 21:30 Blood Blood Culture - Preliminary NO GROWTH AFTER 24 HOURS Resulted 09/23/17 03:33 Urine,Clean Catch Urine Culture - Preliminary Gram Negative Bacillus 1 Resulted 09/22/17 23:44 Rectum Received Laboratory Tests 09/23/17 09:40: Arterial Blood pH 7.276L, Arterial Blood Partial Pressure CO2 65.6*H, Arterial Blood Partial Pressure O2 66.5L, Arterial Blood HCO3 29.9H, Arterial Blood Oxygen Saturation 89.9L, Arterial Blood Base Excess 1.4, Jed Test Positive 09/23/17 20:14: Arterial Blood pH 7.416, Arterial Blood Partial Pressure CO2 41.6, Arterial Blood Partial Pressure O2 84.2, Arterial Blood HCO3 26.1H, Arterial Blood Oxygen Saturation 96.5, Arterial Blood Base Excess 1.4, Jed Test Positive 09/24/17 03:41: White Blood Count 14.3#H, Red Blood Count 4.90, Hemoglobin 12.4L, Hematocrit 39.0L, Mean Corpuscular Volume 80, Mean Corpuscular Hemoglobin 25.4L, Mean Corpuscular Hemoglobin Concent 31.9L, Red Cell Distribution Width 17.1H, Platelet Count 95L, Mean Platelet Volume 11.2H, Neutrophils (%) (Auto) , Lymphocytes (%) (Auto) , Monocytes (%) (Auto) , Eosinophils (%) (Auto) , Basophils (%) (Auto) , Sodium Level 140, Potassium Level 3.3L, Chloride Level 103, Carbon Dioxide Level 25, Anion Gap 12, Blood Urea Nitrogen 24H, Creatinine 0.7, Estimat Glomerular Filtration Rate > 60, Glucose Level 55L, Calcium Level 8.6 09/24/17 05:00: Urine Legionella Antigen [Pending] Current Medications Medications (Trade) Dose Ordered Sig/Reid Route PRN Reason Start Time Stop Time Status Last Admin Dose Admin Acetaminophen (Tylenol) 320 mg Q4H PRN GT MILD pain 1-3/TEMP >100.5 09/23/17 03:45 10/23/17 03:44 Acetaminophen (Tylenol) 640 mg Q4H PRN GT moderate pain 09/23/17 03:45 10/23/17 03:44 Albuterol/ Ipratropium (Albuterol/ Ipratropium) 3 ml Q6HRT HHN 09/23/17 07:00 09/28/17 06:59 09/24/17 07:43 Apixaban (Eliquis) 5 mg BID GT 09/23/17 09:00 10/23/17 08:59 09/23/17 17:50 Atorvastatin Calcium (Lipitor) 10 mg BEDTIME GT 09/23/17 21:00 10/23/17 20:59 09/23/17 21:06 Azithromycin 500 mg/Dextrose 275 ml @ 275 mls/hr Q24H IV 09/23/17 19:00 09/29/17 19:59 09/23/17 17:35 Carbamazepine (TEGretol) 300 mg Q8HR GT 09/23/17 06:00 10/23/17 05:59 09/24/17 05:16 Dextrose (Dextrose 50%) 25 ml STAT PRN IV Hypoglycemia 09/23/17 04:00 10/23/17 03:59 Dextrose (Dextrose 50%) 50 ml STAT PRN IV Hypoglycemia 09/23/17 04:00 10/23/17 03:59 09/24/17 06:48 Levetiracetam 1500 mg/Dextrose 110 ml @ 220 mls/hr Q12HR IV 09/23/17 22:00 10/23/17 21:59 09/23/17 21:45 Lorazepam (Ativan 2mg/ml 1ml) 1 mg Q4H PRN IV For Seizures 09/23/17 04:30 09/30/17 04:29 09/23/17 12:57 Piperacillin Sod/ Tazobactam Sod 3.375 gm/Dextrose 100 ml @ 25 mls/hr Q8H IVPB 09/23/17 16:00 09/30/17 15:59 09/24/17 08:07 Sodium Chloride 1,000 ml @ 75 mls/hr [id number] IVLG 09/23/17 04:48 10/23/17 04:47 09/24/17 06:49 Vancomycin HCl (Vanco rx to dose) 1 ea DAILY PRN MISC Per rx protocol 09/23/17 15:15 10/23/17 15:14 Vancomycin HCl 1 gm/Dextrose 275 ml @ 183.708 mls/hr Q8H IVPB 09/23/17 17:00 09/28/17 16:59 09/24/17 08:07 Ochoa Sharpe MD Sep 24, 2017 08:30
[2017-09-24] MEDS: LEVETIRACETAM IV SCH ×2 (08:35→20:17)
[2017-09-24] MEDS: DEXTROSE IV SCH ×2 (08:35→20:17)
--- NOTE | 2017-09-24 08:46 | Cardiology Progress Note ---
Assessment/Plan Assessment/Plan The patient is seen and examined, full consult note will be dictated shortly. Objective Last 24 Hour Vital Signs Date Time Temp Pulse Resp B/P (MAP) Pulse Ox O2 Delivery O2 Flow Rate FiO2 09/24/17 08:00 70 09/24/17 07:53 104 32 100 Bi-pap 70 09/24/17 07:43 104 35 100 Bi-pap 70 09/24/17 07:41 104 35 100 Full Face 70 09/24/17 05:29 96 30 99 Full Face 70 09/24/17 04:00 70 09/24/17 04:00 92 09/24/17 04:00 Bi-pap 16.0 09/24/17 04:00 97.5 93 26 137/68 (91) 92 97.5 09/24/17 02:57 96 32 97 Full Face 70 09/24/17 00:18 61 21 100 Full Face 70 09/24/17 00:00 69 09/24/17 00:00 Bi-pap 16.0 09/24/17 00:00 70 09/24/17 00:00 95.7 70 24 149/77 (101) 100 95.7 09/23/17 23:52 76 39 100 Bi-pap 70 09/23/17 23:40 62 27 100 Bi-pap 70 09/23/17 22:58 61 21 100 Facial 70 09/23/17 21:15 66 19 100 Facial 70 09/23/17 20:00 95.5 79 29 140/73 (95) 96 95.5 09/23/17 20:00 Bi-pap 16.0 09/23/17 20:00 70 09/23/17 20:00 82 09/23/17 19:12 86 39 100 Bi-pap 70 09/23/17 19:02 72 21 100 Facial 70 09/23/17 19:02 73 21 100 Bi-pap 70 09/23/17 17:07 80 36 98 Facial 70 09/23/17 16:00 Bi-pap 16.0 09/23/17 16:00 82 09/23/17 16:00 79 38 147/76 (99) 99 09/23/17 16:00 70 09/23/17 15:08 84 33 96 Facial 70 09/23/17 12:52 96 40 94 Bi-pap 70 7/31/18 12:46 89 34 97 Bi-pap 70 09/23/17 12:44 86 34 97 Facial 70 09/23/17 12:00 70 09/23/17 12:00 75 36 169/79 (109) 96 09/23/17 12:00 Bi-pap 16.0 09/23/17 12:00 72 09/23/17 11:04 75 37 96 Facial 70 09/23/17 11:00 70 09/23/17 08:47 67 17 92 Facial 70 Intake and Output 09/23/17 09/24/17 19:00 07:00 Intake Total 913.708 ml 1545.000 ml Output Total 550 ml 250 ml Balance 363.708 ml 1295.000 ml Intake IV Total 913.708 ml 1495.000 ml Other 50 ml Output Urine Total 550 ml 250 ml Laboratory Tests Test 09/23/17 09:40 09/23/17 20:14 09/24/17 03:41 09/24/17 05:00 Arterial Blood pH 7.276 (7.350-7.450) 7.416 (7.350-7.450) Arterial Blood Partial Pressure CO2 65.6 mmHg (35.0-45.0) *H 41.6 mmHg (35.0-45.0) Arterial Blood Partial Pressure O2 66.5 mmHg (75.0-100.0) L 84.2 mmHg (75.0-100.0) Arterial Blood HCO3 29.9 mmol/L (22.0-26.0) H 26.1 mmol/L (22.0-26.0) H Arterial Blood Oxygen Saturation 89.9 % (92.0-98.0) L 96.5 % (92.0-98.0) Arterial Blood Base Excess 1.4 1.4 Jed Test Positive Positive White Blood Count 14.3 K/UL (4.8-10.8) #H Red Blood Count 4.90 M/UL (4.70-6.10) Hemoglobin 12.4 G/DL (14.2-18.0) L Hematocrit 39.0 % (42.0-52.0) L Mean Corpuscular Volume 80 FL (80-99) Mean Corpuscular Hemoglobin 25.4 PG (27.0-31.0) L Mean Corpuscular Hemoglobin Concent 31.9 G/DL (32.0-36.0) L Red Cell Distribution Width 17.1 % (11.6-14.8) H Platelet Count 95 K/UL (150-450) L Mean Platelet Volume 11.2 FL (6.5-10.1) H Neutrophils (%) (Auto) % (45.0-75.0) Lymphocytes (%) (Auto) % (20.0-45.0) Monocytes (%) (Auto) % (1.0-10.0) Eosinophils (%) (Auto) % (0.0-3.0) Basophils (%) (Auto) % (0.0-2.0) Sodium Level 140 MMOL/L (136-145) Potassium Level 3.3 MMOL/L (3.5-5.1) L Chloride Level 103 MMOL/L (98-107) Carbon Dioxide Level 25 MMOL/L (21-32) Anion Gap 12 mmol/L (5-15) Blood Urea Nitrogen 24 mg/dL (7-18) H Creatinine 0.7 MG/DL (0.55-1.30) Estimat Glomerular Filtration Rate > 60 mL/min (>60) Glucose Level 55 MG/DL (74-106) L Calcium Level 8.6 MG/DL (8.5-10.1) Urine Legionella Antigen Pending Microbiology Date/Time Source Procedure Growth Status 09/22/17 21:45 Blood Blood Culture - Preliminary NO GROWTH AFTER 24 HOURS Resulted 09/22/17 21:30 Blood Blood Culture - Preliminary NO GROWTH AFTER 24 HOURS Resulted 09/23/17 03:33 Urine,Clean Catch Urine Culture - Preliminary Gram Negative Bacillus 1 Resulted 09/22/17 23:44 Rectum Received Juan Hogan MD Sep 24, 2017 08:46
[2017-09-24 09:00] VITALS: BP 152/59
[2017-09-24] MEDS ORDERED: LEVETIRACETAM IV SCH (09:00)
[2017-09-24] MEDS ORDERED: DEXTROSE IV SCH (09:00)
--- NOTE | 2017-09-24 11:21 | Diagnostic Imaging Report ---
Indication: Cough, dyspnea Technique: One view of the chest Comparison: 09/22/2017 Findings: Fairly extensive dense consolidation is seen in the right mid and lower lung, not evident previously. There is also a less extensive consolidation in the left perihilar and infrahilar region. The pleural spaces are clear. The heart size is normal. Impression: Bilateral right greater than left infiltrates, new/increased since 09/22/2017
[2017-09-24 12:00] VITALS: BP 147/72
[2017-09-24 16:00] VITALS: BP 155/74
--- NOTE | 2017-09-24 16:26 | Infectious Diseases Prog Note ---
Assessment/Plan Assessment/Plan Full consult dictated: A) 1) pna, ? aspiration, ? cap, ? HCAP, gram neg uti, gram + bacteremia 2) ams, sepsis, hypothermia 3) bipap 4) pmh noted P) 1) zosyn, vancomycin, azithromycin 2) check sputum culture, labs and chest x-ray, uc, bc, echo 3) will f/u Subjective Allergies: Coded Allergies: PHENYTOIN (Unverified Allergy, Unknown, 09/22/17) Objective Vital Signs Last 24 Hour Vital Signs Date Time Temp Pulse Resp B/P (MAP) Pulse Ox O2 Delivery O2 Flow Rate FiO2 09/24/17 16:00 80 09/24/17 15:09 115 32 99 Full Face 80 09/24/17 14:19 122 22 92 Full Face 100 09/24/17 13:33 111 31 92 Venturi Mask 14.0 55 09/24/17 13:23 110 31 92 Bi-pap 45 09/24/17 12:00 111 09/24/17 12:00 Bi-pap 16.0 09/24/17 12:00 98.1 11 16 147/72 (97) 97 98.1 09/24/17 12:00 45 09/24/17 10:41 115 36 98 Full Face 45 09/24/17 09:00 98.5 105 20 152/59 (90) 99 98.5 09/24/17 08:44 106 42 99 Full Face 45 09/24/17 08:00 70 09/24/17 08:00 100 09/24/17 08:00 Bi-pap 16.0 09/24/17 07:53 104 32 100 Bi-pap 70 09/24/17 07:43 104 35 100 Bi-pap 70 09/24/17 07:41 104 35 100 Full Face 70 09/24/17 05:29 96 30 99 Full Face 70 09/24/17 04:00 70 09/24/17 04:00 92 09/24/17 04:00 Bi-pap 16.0 09/24/17 04:00 97.5 93 26 137/68 (91) 92 97.5 09/24/17 02:57 96 32 97 Full Face 70 09/24/17 00:18 61 21 100 Full Face 70 09/24/17 00:00 69 09/24/17 00:00 Bi-pap 16.0 09/24/17 00:00 70 09/24/17 00:00 95.7 70 24 149/77 (101) 100 95.7 09/23/17 23:52 76 39 100 Bi-pap 70 09/23/17 23:40 62 27 100 Bi-pap 70 09/23/17 22:58 61 21 100 Facial 70 09/23/17 21:15 66 19 100 Facial 70 09/23/17 20:00 95.5 79 29 140/73 (95) 96 95.5 09/23/17 20:00 Bi-pap 16.0 09/23/17 20:00 70 09/23/17 20:00 82 09/23/17 19:12 86 39 100 Bi-pap 70 09/23/17 19:02 72 21 100 Facial 70 09/23/17 19:02 73 21 100 Bi-pap 70 09/23/17 17:07 80 36 98 Facial 70 Height (Feet): 6 Height (Inches): 1.00 Weight (Pounds): 212 Microbiology Date/Time Source Procedure Growth Status 09/22/17 21:45 Blood Blood Culture - Preliminary Resulted 09/22/17 21:30 Blood Blood Culture - Preliminary Resulted 09/23/17 03:33 Urine,Clean Catch Urine Culture - Preliminary Gram Negative Bacillus 1 Resulted 09/22/17 23:44 Rectum Received Laboratory Tests Test 09/23/17 20:14 09/24/17 03:41 09/24/17 05:00 09/24/17 08:27 Arterial Blood pH 7.416 (7.350-7.450) 7.450 (7.350-7.450) Arterial Blood Partial Pressure CO2 41.6 mmHg (35.0-45.0) 38.1 mmHg (35.0-45.0) Arterial Blood Partial Pressure O2 84.2 mmHg (75.0-100.0) 148.6 mmHg (75.0-100.0) H Arterial Blood HCO3 26.1 mmol/L (22.0-26.0) H 26.0 mmol/L (22.0-26.0) Arterial Blood Oxygen Saturation 96.5 % (92.0-98.0) 98.8 % (92.0-98.0) H Arterial Blood Base Excess 1.4 2.1 Jed Test Positive Positive White Blood Count 14.3 K/UL (4.8-10.8) #H Red Blood Count 4.90 M/UL (4.70-6.10) Hemoglobin 12.4 G/DL (14.2-18.0) L Hematocrit 39.0 % (42.0-52.0) L Mean Corpuscular Volume 80 FL (80-99) Mean Corpuscular Hemoglobin 25.4 PG (27.0-31.0) L Mean Corpuscular Hemoglobin Concent 31.9 G/DL (32.0-36.0) L Red Cell Distribution Width 17.1 % (11.6-14.8) H Platelet Count 95 K/UL (150-450) L Mean Platelet Volume 11.2 FL (6.5-10.1) H Neutrophils (%) (Auto) % (45.0-75.0) Lymphocytes (%) (Auto) % (20.0-45.0) Monocytes (%) (Auto) % (1.0-10.0) Eosinophils (%) (Auto) % (0.0-3.0) Basophils (%) (Auto) % (0.0-2.0) Sodium Level 140 MMOL/L (136-145) Potassium Level 3.3 MMOL/L (3.5-5.1) L Chloride Level 103 MMOL/L (98-107) Carbon Dioxide Level 25 MMOL/L (21-32) Anion Gap 12 mmol/L (5-15) Blood Urea Nitrogen 24 mg/dL (7-18) H Creatinine 0.7 MG/DL (0.55-1.30) Estimat Glomerular Filtration Rate > 60 mL/min (>60) Glucose Level 55 MG/DL (74-106) L Calcium Level 8.6 MG/DL (8.5-10.1) Urine Legionella Antigen Pending Test 09/24/17 16:00 Vancomycin Level Trough Pending Current Medications Medications (Trade) Dose Ordered Sig/Reid Route PRN Reason Start Time Stop Time Status Last Admin Dose Admin Acetaminophen (Tylenol) 320 mg Q4H PRN GT MILD pain 1-3/TEMP >100.5 09/23/17 03:45 10/23/17 03:44 Acetaminophen (Tylenol) 640 mg Q4H PRN GT moderate pain 09/23/17 03:45 10/23/17 03:44 Albuterol/ Ipratropium (Albuterol/ Ipratropium) 3 ml Q6HRT HHN 09/23/17 07:00 09/28/17 06:59 09/24/17 13:23 Apixaban (Eliquis) 5 mg BID GT 09/23/17 09:00 10/23/17 08:59 09/23/17 17:50 Atorvastatin Calcium (Lipitor) 10 mg BEDTIME GT 09/23/17 21:00 10/23/17 20:59 09/23/17 21:06 Azithromycin 500 mg/Dextrose 275 ml @ 275 mls/hr Q24H IV 09/23/17 19:00 09/29/17 19:59 09/23/17 17:35 Carbamazepine (TEGretol) 300 mg Q8HR GT 09/23/17 06:00 10/23/17 05:59 09/24/17 13:30 Dextrose (Dextrose 50%) 25 ml STAT PRN IV Hypoglycemia 09/23/17 04:00 10/23/17 03:59 Dextrose (Dextrose 50%) 50 ml STAT PRN IV Hypoglycemia 09/23/17 04:00 10/23/17 03:59 09/24/17 06:48 Dextrose/ Electrolytes 1,000 ml @ 50 mls/hr Q20H IV 09/24/17 09:30 10/24/17 09:29 09/24/17 09:41 Levetiracetam 1500 mg/Dextrose 110 ml @ 220 mls/hr Q12HR IV 09/23/17 22:00 10/23/17 21:59 09/24/17 08:35 Lorazepam (Ativan 2mg/ml 1ml) 1 mg Q4H PRN IV For Seizures 09/23/17 04:30 09/30/17 04:29 09/23/17 12:57 Piperacillin Sod/ Tazobactam Sod 3.375 gm/Dextrose 100 ml @ 25 mls/hr Q8H IVPB 09/23/17 16:00 09/30/17 15:59 09/24/17 15:36 Vancomycin HCl (Vanco rx to dose) 1 ea DAILY PRN MISC Per rx protocol 09/23/17 15:15 10/23/17 15:14 Vancomycin HCl 1 gm/Dextrose 275 ml @ 183.708 mls/hr Q8H IVPB 09/23/17 17:00 09/28/17 16:59 09/24/17 08:07 Anibal Murphy MD Sep 24, 2017 16:26
[2017-09-24] MEDS: Azithromycin 500 MG in D5W 275 ML IV SCH (18:01)
[2017-09-24] MEDS ORDERED: NS 275ml ONE (18:37)
[2017-09-24] MEDS ORDERED: Tubing IV Secondary IV ONE (18:37)
[2017-09-24 20:00] VITALS: BP 136/50
--- NOTE | 2017-09-24 20:16 | Neurology Progress Note ---
Interim History Interim History Interim History Mr. Guo continues to be poorly responsive. He however has been seizure free. He continues to be on BiPAP. He is on appropriate antibiotics. He is still acutely ill. Review of Systems Neuro Review of Systems Unable to obtain. Objective Physical Exam Last Vital Signs Date Time Temp Pulse Resp B/P (MAP) Pulse Ox O2 Delivery O2 Flow Rate FiO2 09/24/17 19:51 111 30 97 Bi-pap 70 09/24/17 18:25 98.2 09/24/17 16:00 16.0 09/24/17 16:00 155/74 (101) Laboratory Tests Test 09/23/17 20:14 09/24/17 03:41 09/24/17 05:00 09/24/17 08:27 Arterial Blood pH 7.416 (7.350-7.450) 7.450 (7.350-7.450) Arterial Blood Partial Pressure CO2 41.6 mmHg (35.0-45.0) 38.1 mmHg (35.0-45.0) Arterial Blood Partial Pressure O2 84.2 mmHg (75.0-100.0) 148.6 mmHg (75.0-100.0) H Arterial Blood HCO3 26.1 mmol/L (22.0-26.0) H 26.0 mmol/L (22.0-26.0) Arterial Blood Oxygen Saturation 96.5 % (92.0-98.0) 98.8 % (92.0-98.0) H Arterial Blood Base Excess 1.4 2.1 Jed Test Positive Positive White Blood Count 14.3 K/UL (4.8-10.8) #H Red Blood Count 4.90 M/UL (4.70-6.10) Hemoglobin 12.4 G/DL (14.2-18.0) L Hematocrit 39.0 % (42.0-52.0) L Mean Corpuscular Volume 80 FL (80-99) Mean Corpuscular Hemoglobin 25.4 PG (27.0-31.0) L Mean Corpuscular Hemoglobin Concent 31.9 G/DL (32.0-36.0) L Red Cell Distribution Width 17.1 % (11.6-14.8) H Platelet Count 95 K/UL (150-450) L Mean Platelet Volume 11.2 FL (6.5-10.1) H Neutrophils (%) (Auto) % (45.0-75.0) Lymphocytes (%) (Auto) % (20.0-45.0) Monocytes (%) (Auto) % (1.0-10.0) Eosinophils (%) (Auto) % (0.0-3.0) Basophils (%) (Auto) % (0.0-2.0) Sodium Level 140 MMOL/L (136-145) Potassium Level 3.3 MMOL/L (3.5-5.1) L Chloride Level 103 MMOL/L (98-107) Carbon Dioxide Level 25 MMOL/L (21-32) Anion Gap 12 mmol/L (5-15) Blood Urea Nitrogen 24 mg/dL (7-18) H Creatinine 0.7 MG/DL (0.55-1.30) Estimat Glomerular Filtration Rate > 60 mL/min (>60) Glucose Level 55 MG/DL (74-106) L Calcium Level 8.6 MG/DL (8.5-10.1) Urine Legionella Antigen Pending Test 09/24/17 16:00 Vancomycin Level Trough 20.1 ug/mL (5.0-12.0) H Neurologic Exam Objective PHYSICAL EXAMINATION: GENERAL: He is a well-developed, well-nourished, black gentleman, lying in bed , with ongoing BiPAP. HEAD: Normocephalic with right frontotemporoparietal craniotomy. EENT: Examination could not be performed because he was on a BiPAP mask. NECK: No neck rigidity was observed. NEUROLOGICAL EXAMINATION: MENTAL STATUS EXAMINATION: He could be aroused minimally on deep pain. Further mental status testing was thus impossible. SPEECH: Could not be tested. LANGUAGE: Could not be tested. CRANIAL NERVE EXAMINATION: II: He did not blink to threat. He had a right-sided corneal nebula. III, IV & : External ocular movements were present on oculocephalic maneuvers. The right pupil could not be visualized. The left pupil was 3 mm in diameter and did not react to light. V & VII: The corneal reflexes were present bilaterally, but the left-sided reflex was diminished compared to the right. VIII: He did not respond to sounds and had no nystagmus. IX & X: Could not be tested because he was on a BiPAP mask. XI: The sternocleidomastoids and trapezii did not function. XII: Could not be tested. MOTOR SYSTEM: The tone was normal in all four extremities. Examination of muscle mass revealed mild wasting of the left upper and lower extremities. Examination of power could not be performed because even on applying deep painful stimuli, the only movements seen were reflex withdrawal in the lower extremities. SENSORY EXAMINATION: He did not respond to deep pain, other than reflex withdrawal in the lower extremities. REFLEXES: 0 at the biceps, triceps, brachioradialis, knees, and ankles. The plantar responses were extensor bilaterally. COORDINATION, STANCE & GAIT: Could not be tested. Impression/Recommendations Diagnostic Impression 1. Mr. 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 He was hospitalized after having seizures at his group home. He was discovered to have a urinary tract infection and pneumonia. He continued to have recurrent seizures in the hospital with his last seizure at approximately 1 p.m on 09/23/17. 2. He continues to be poorly responsive. He however has been seizure free. He continues to be on BiPAP. He is on appropriate antibiotics. He is still acutely ill. 3. On neurological examination at this time, he can be aroused minimally on deep pain. He does not blink to threat. His eye movements were present on oculocephalic maneuvers. The corneal reflexes are present with the left side reflex diminished compared to the right. His left pupil is 3 mm and nonreactive. His right pupil cannot be visualized. He does not move to deep pain except for reflex withdrawal in both lower extremities, and his deep tendon reflexes are absent. His plantar responses are extensor bilaterally. 4. The CT scan of the brain without contrast reveals severe encephalomalacia in the right frontotemporoparietal area and less severe encephalomalacia in the left frontal area. 5. His latest laboratory data on my initial evaluation revealed that he was anemic with a hemoglobin of 12.6 G. His chemistry panel revealed that his BUN was elevated to 26, his glucose was elevated at 112, his AST was elevated at 45 , his alkaline phosphatase was elevated at 215, and his albumin was low at 3.0. His lactic acid was elevated to 12.4 on admission but was 1.2 later. His carbamazepine level was therapeutic at 6.8. His urinalysis revealed 3+ leukocyte esterase, 15 to 20 red blood cells per high-power field, and too numerous to count white blood cells per high-power field with many bacteria. 6. His chest x-ray revealed asymmetric right-sided opacities most pronounced at the medial right base consistent with pneumonic process. 7. The patient's history, neurological examination, laboratory data, and imaging studies are most compatible with breakthrough seizures in a patient who has had severe prior brain injury and an underlying seizure disorder, who was on relatively low doses of anticonvulsants and now has a superimposed urinary tract infection and pneumonia. Recommendations 1. Continue present management. 2. Continue Keppra 1.5 G intravenously taken every 12 hours. 3. Continue Tegretol at his present dose. 4. Ativan should only be given for status epilepticus and not for every single seizure. It was made very clear to the nurse that should be done. 5. Correction of respiratory status as per Dr. Sharpe. 6. Treatment of infectious processes as per Dr. Murphy. 7. Observe closely. Watson Antunez M.D., M.S.P.H. WATSON ANTUNEZ Sep 24, 2017 20:16
[2017-09-24] MEDS: Vancomycin 750mg/NS 250ml IVPB SCH (21:53)
--- NOTE | 2017-09-24 22:00 | Consultation ---
DATE OF CONSULTATION: 09/24/2017 INFECTIOUS DISEASE CONSULTATION CONSULTING PHYSICIAN: Anibal Murphy M.D. ATTENDING PHYSICIAN: Ochoa Sharpe M.D. REASON FOR CONSULTATION: Sepsis, gram-positive bacteremia, gram-negative UTI, hypothermia, and pneumonia. PATIENT'S CHIEF COMPLAINT COMING INTO THE HOSPITAL: Sepsis and pneumonia. HISTORY OF PRESENT ILLNESS: This is a 62-year-old male, who comes in to [facility] with shortness of breath. The patient was noted to have pneumonia on chest x-ray. The patient is at high risk for aspiration and healthcare-acquired pneumonia and community-acquired pneumonia. The patient's workup shows that he has gram-negative UTI and gram-positive bacteremia. Infectious Disease consultation is requested for antibiotic management. The patient was started on vancomycin and Zosyn yesterday. Cultures again showed gram-negative UTI and gram-positive bacteremia, final identification is pending. Sputum culture is pending. Chest x-ray was consistent with pneumonia. The patient is in the step-down unit, is on BiPAP. Case discussed with the RN. The patient also came in with seizures in addition to shortness of breath and hypoxia. PAST MEDICAL HISTORY: The patient has a past medical history of G-tube, seizure disorder, history of hypertension, hyperlipidemia, osteoporosis, anticoagulation use, history of GI hemorrhage, history of UTI, CVA, and hemiplegia. This patient has dysphagia and G-tube, early dementia, hyperlipidemia, hypertension, and CVA. He has had aspiration risk. No history of diabetes mentioned per the records. MEDICATIONS: Upon reviewing the MAR, he is on following medications. He is on abx He is on Lipitor, azithromycin, vancomycin, Zosyn, Eliquis, carbamazepine or Tegretol, albuterol, lorazepam, and acetaminophen. Outside medications were noted and reconciliated. ALLERGIES: Phenytoin. FAMILY HISTORY: Noncontributory. SOCIAL HISTORY: Negative for smoking, alcohol, or drug abuse. REVIEW OF SYSTEMS: GENERAL: The patient is congested, short of breath, on BiPAP. He has generalized fatigue, weakness, and poorly responsive. HEAD AND NECK: Could not really assess. CARDIAC: No pressors. GASTROINTESTINAL: No nausea, vomiting, or diarrhea. GENITOURINARY: Really cannot assess CVA tenderness. He is lethargic. PULMONARY: Short of breath and congestion, on BiPAP. SKIN: No obvious rash. NEUROLOGIC: No seizures. Generalized fatigue and weakness. No fevers. Review of systems otherwise is limited in this patient PHYSICAL EXAMINATION: GENERAL: Lethargic, poorly responsive. VITAL SIGNS: The patient was hypothermic when he first came in, temperature 95.0 degrees, currently temperature 98.1 degrees; pulse rate 115; respiratory rate 32; and saturation 99%. He is on FiO2 of 80-100%. He has been on BiPAP. HEAD AND NECK: Oral exam, no thrush. Eye exam, no icterus. Neck is supple. No icterus. He has breathing mask. HEART: Regular. No obvious gallop or murmur. Tachycardic. ABDOMEN: Soft. Positive bowel sounds. LUNGS: Bilateral rhonchi and rales. SKIN: No rash. MUSCULOSKELETAL: No effusion. Legs without cellulitis. PERIPHERAL VASCULAR: No cyanosis or gangrene. GENITOURINARY: Cannot assess CVA tenderness. LINE SITES: Without phlebitis. NEUROLOGIC: Generalized weakness. Poorly responsive. His wounds were reviewed, do not look acutely infected to me. LABORATORY AND DIAGNOSTIC DATA: White count 14.3 and hemoglobin 12.4. Creatinine is 0.7. Cultures, urine culture, gram-negative rods. Blood culture, gram-positive organisms, identification is pending. UA had 3+ leukocyte esterase, too many to count white blood cells. Chest x-ray, imaging, showed the following. It showed bilateral right greater than left infiltrates increased. That is from 09/24/2017. CT scan of the head was noted and reviewed, chronic changes it looks like mostly. ASSESSMENT AND PLAN: 1. The patient is septic with hypothermia, tachycardia, elevated white count. The patient has gram-positive bacteremia, has gram-negative urinary tract infection and also aspiration, healthcare acquired pneumonia versus community-acquired pneumonia. Continue vancomycin and Zosyn. Check final cultures. Check echo. Check surveillance blood cultures. Check urine culture, labs and chest x-ray. Continue treatment for sepsis, pneumonia, gram-negative urinary tract infection, gram-positive bacteremia. Check echo to rule out endocarditis. Continue vancomycin and Zosyn. The patient's condition is guarded. 2. Seizures. 3. Cerebrovascular accident. 4. High risk for aspiration. 5. Dysphagia, G-tube. 6. Hypertension. 7. Hyperlipidemia. 8. Osteoporosis. 9. Chronic anticoagulation. 10. Gastrointestinal hemorrhage. 11. Cerebrovascular accident with weakness on the left side. 12. Allergies to phenytoin. 13. Social history is negative. 14. Family history is noncontributory. 15. MAR was noted. 16. Case discussed with RN. 17. Continue treatment per primary consultants. 18. Prognosis guarded. 19. [facility] care. 20. Skin care protocol. Anibal Murphy M.D. DR: RICKI JOB#: [id number] CC: NASIR
--- NOTE | 2017-09-24 22:00 | Consultation ---
DATE OF CONSULTATION: 09/24/2017 CARDIOLOGY CONSULTATION CONSULTING PHYSICIAN: Juan Hogan M.D. REFERRING PHYSICIAN: Ochoa Sharpe M.D. REASON FOR CONSULTATION: Management of bradyarrhythmias. HISTORY OF PRESENT ILLNESS: The patient is a very unfortunate 62-year-old gentleman, a resident of a detention facility, who is bedbound, who presents to this hospital with chief complaint of seizures. According to the staff at the detention [facility], he had one episode of seizure at that facility that lasted about 10 minutes. He was given Versed intranasally and intravenously about 5 mg which resolved the seizures. The patient was brought in to this facility for further evaluation and management. Initial vital signs revealed blood pressure 138/70 mmHg and heart rate of 106. A 12-lead electrocardiogram in the emergency department showed sinus tachycardia, rate of 111, with nonspecific ST and T-wave abnormalities, but no acute ST and T-wave changes. The patient was admitted to [facility] for further evaluation and management of seizures. During this hospitalization while on air sampling and monitoring, he demonstrated a few beats of second-degree type 2 AV block resulting in pauses. This appeared to be happening at the time that the patient was asleep. Currently, air sampling and monitoring shows sinus tachycardia, rate of 100. The patient is unfortunately nonverbal. This history was prepared by using the old records. PAST MEDICAL HISTORY: Including diabetes mellitus, hypertension, history of CVA/TIA, history of seizure disorders, history of dysphagia, status post G-tube placement, history of peptic ulcer disease. PAST SURGICAL HISTORY: PEG placement. ALLERGIES: To phenytoin. PAST FAMILY HISTORY: No premature coronary artery disease in first-degree relatives. REVIEW OF SYSTEMS: A 12-system review done essentially negative except what was mentioned in the history of present illness. The patient is nonverbal and not capable of providing review of systems. SOCIAL HISTORY: There is no history of tobacco, alcohol, or illicit drug use. MEDICATIONS: List of medications at detention [facility] includes acetaminophen 160/5 mL, 10 mL G-tube q.4 hours p.r.n. fever, headache, and mild pain. Eliquis 5 mg G-tube twice daily, atorvastatin 10 mg G-tube at bedtime, Tegretol 300 mg G-tube 3 times a day, Robitussin AC 10 mL G-tube q.4 hours p.r.n. cough. DuoNeb 0.5/3, 3 mL HHN. Jevity 1.2 calorie liquid G-tube, Keppra 5 mL G-tube 3 times a day. PHYSICAL EXAMINATION: VITAL SIGNS: Blood pressure at time of arrival to the hospital 138/70 mmHg, heart rate of 106, respiration of 30, pulse oximetry of 88% on non-rebreather mask which is 15 L/min of oxygen flow, O2 saturation . GENERAL: The patient is a very unfortunate 62-year-old gentleman, nonverbal. HEENT: Atraumatic and normocephalic. Anicteric. Right corneal ulceration. Left eye, pupil is reactive to light and accommodation. NECK: Cannot be assessed at this time. No carotid bruit. CARDIOVASCULAR SYSTEM: Normal S1, S2. Regular rate and rhythm. Tachycardic. No murmurs, gallops, or rubs. PMI is at fourth intercostal space at the midclavicular line. LUNGS: Diminished breath sounds in both bases. ABDOMEN: Soft, nontender, and nondistended. Positive bowel sounds. Positive G-tube in place. EXTREMITIES: No evidence of edema, clubbing, or cyanosis. LABORATORY FINDINGS: WBC is 9.1, hemoglobin 12.6, hematocrit of 40.1, and platelet count 103,000. Sodium 139, potassium 3.3, chloride 96, bicarbonate 24, BUN of 26, creatinine 0.8, glucose 112, calcium is 9.3. INR was 1.0. CT of head showed extensive chronic-appearing postischemic, postoperative, posttraumatic changes. No intracranial hemorrhage. Severe encephalomalacia with CSF attenuation involving the right frontal, parietal, and temporal lobes and some in the left frontal lobe. Chest x-ray shows asymmetric right-sided opacities, most pronounced in medial right base, correlate for pneumonia, questionable aspiration. ASSESSMENT AND PLAN: The patient is a very unfortunate 62-year-old gentleman, seen in Cardiology consultation at request of Dr. Sharpe. 1. Transient type 2 second-degree AV block. I would avoid AV anthony agents. Currently, the patient is in sinus tach. Given the patient's severe debilitation, I would not believe that he would benefit from any aggressive interventions. He is not a candidate for pacemaker implantation. The periods of AV anthony block is very short and transient and unlikely to cause any symptoms. I would continue conservative management and monitoring the rhythm closely. At this time, I have not noticed any tachyarrhythmia, however, I must mention that the patient is on Eliquis therapy and I suspect that the patient may have paroxysmal atrial fibrillation. 2. History of CVA with left hemiparesis, possibly embolic given being on Eliquis. 3. History of seizure disorder. 4. Thrombocytopenia, suspect antiseizure medication to be culprit. Eliquis can also cause decrease in platelet count. I would like to thank Dr. Sharpe for allowing me to participate in care of this patient. Juan Hogan M.D. DR: Adilia JOB#: [id number] CC:
[2017-09-25] VITALS (8 sets, daily range): BP systolic 130–173; BP diastolic 47–71
[2017-09-25] MEDS: Albuterol/Ipratropium 3ml neb HHN SCH ×4 (01:19→19:41)
[2017-09-25 04:51] LABS: HEMATOCRIT 31.3 % (42.0-52.0); MEAN CORPUSCULAR VOLUME 78 FL (80-99); PLATELET COUNT 75 K/UL (150-450); RED BLOOD COUNT 4.01 M/UL (4.70-6.10); RED CELL DISTRIBUTION WIDTH 16.6 % (11.6-14.8); WHITE BLOOD COUNT 8.5 K/UL (4.8-10.8)
[2017-09-25 05:07] LABS: ANION GAP 7 mmol/L (5-15); BLOOD UREA NITROGEN 27 mg/dL (7-18); CALCIUM 8.6 MG/DL (8.5-10.1); CARBON DIOXIDE 28 MMOL/L (21-32); CHLORIDE 105 MMOL/L (98-107); CREATININE 0.9 MG/DL (0.55-1.30); POTASSIUM 3.4 MMOL/L (3.5-5.1); SODIUM 140 MMOL/L (136-145)
[2017-09-25] MEDS: Vancomycin 750mg/NS 250ml IVPB SCH ×3 (05:12→22:07)
[2017-09-25] MEDS: carBAMazepine 200mg tab GT SCH ×3 (05:12→21:51)
[2017-09-25] MEDS: LEVETIRACETAM IV SCH ×2 (08:12→20:37)
[2017-09-25] MEDS: DEXTROSE IV SCH ×2 (08:12→20:37)
[2017-09-25] MEDS: Eliquis 2.5mg tablet GT SCH ×2 (08:30→17:19)
--- NOTE | 2017-09-25 09:17 | Pulmonology Progress Note ---
Assessment/Plan Assessment/Plan IMPRESSION: 1. Respiratory acidosis. 2. Acute respiratory failure. 3. Sepsis. 4. UTI. 5. Probable pneumonia. 6. Seizure disorder. 7. Previous CVA. 8. Aspiration pneumonia. 9. Hypertension. DISCUSSION: ABG better yesterday on BiPAP Will check again today; will attempt off BiPAP Continue broad-spectrum antibiotics. ID following' Continue Tegretol and continue Keppra. I will follow carefully. Neuro consult noted Having hypoglycemic episodes; will continue dextrose and add tube feedings Cardiology consult noted for bradycardia Subjective Interval Events: Remains on BiPAP; very poorly responsive Constitutional: Reports: no symptoms HEENT: Repors: no symptoms Respiratory: Reports: no symptoms Cardiovascular: Reports: no symptoms Gastrointestinal/Abdominal: Reports: no symptoms Genitourinary: Reports: no symptoms Allergies: Coded Allergies: PHENYTOIN (Unverified Allergy, Unknown, 09/22/17) Objective Last 24 Hour Vital Signs Date Time Temp Pulse Resp B/P (MAP) Pulse Ox O2 Delivery O2 Flow Rate FiO2 09/25/17 09:06 93 32 98 Facial 60 09/25/17 08:22 79 09/25/17 08:00 97.9 98 32 162/70 (100) 99 97.9 09/25/17 08:00 Bi-pap 16.0 09/25/17 08:00 60 09/25/17 07:25 81 27 100 Bi-pap 60 09/25/17 07:18 85 30 98 Bi-pap 60 09/25/17 07:16 85 28 98 Facial 60 09/25/17 05:00 81 29 99 Facial 60 09/25/17 04:00 Bi-pap 16.0 09/25/17 04:00 60 09/25/17 04:00 94 09/25/17 04:00 97.5 62 25 130/57 (81) 100 97.5 09/25/17 03:30 97 36 99 Facial 60 09/25/17 01:34 99 36 99 Bi-pap 60 09/25/17 01:19 100 28 99 Facial 60 09/25/17 01:19 100 28 99 Bi-pap 60 09/25/17 00:00 98.2 101 25 151/59 (89) 99 98.2 09/25/17 00:00 99 09/25/17 00:00 60 09/25/17 00:00 Bi-pap 16.0 09/24/17 23:25 102 33 98 Full Face 60 09/24/17 21:29 112 38 96 Full Face 70 09/24/17 20:01 117 34 97 Bi-pap 70 09/24/17 20:00 75 09/24/17 20:00 109 09/24/17 20:00 98.6 113 35 136/50 (78) 94 98.6 09/24/17 20:00 Bi-pap 16.0 09/24/17 19:51 111 30 97 Bi-pap 70 09/24/17 19:51 111 30 97 Full Face 70 09/24/17 18:25 98.2 09/24/17 18:02 98.2 09/24/17 16:46 112 35 96 Full Face 75 09/24/17 16:00 80 09/24/17 16:00 Bi-pap 16.0 09/24/17 16:00 116 09/24/17 16:00 98.2 115 38 155/74 (101) 96 98.2 09/24/17 15:09 115 32 99 Full Face 80 09/24/17 14:19 122 22 92 Full Face 100 09/24/17 13:33 111 31 92 Venturi Mask 14.0 55 09/24/17 13:23 110 31 92 Bi-pap 45 09/24/17 12:00 111 09/24/17 12:00 Bi-pap 16.0 09/24/17 12:00 98.1 111 16 147/72 (97) 97 98.1 09/24/17 12:00 45 09/24/17 10:41 115 36 98 Full Face 45 Intake and Output 09/24/17 09/25/17 19:00 07:00 Intake Total 1337 ml 975.000 ml Output Total 50 ml Balance 1287 ml 975.000 ml Intake IV Total 1297 ml 955.000 ml Other 40 ml 20 ml Output Urine Total 50 ml # Voids 1 1 General Appearance: no acute distress HEENT: normocephalic Respiratory/Chest: chest wall non-tender, lungs clear Cardiovascular: normal peripheral pulses, normal rate Abdomen: normal bowel sounds Microbiology Date/Time Source Procedure Growth Status 09/22/17 21:45 Blood Blood Culture - Preliminary Staphylococcus Sp Coag Neg Resulted 09/22/17 21:30 Blood Blood Culture - Preliminary Staphylococcus Sp Coag Neg Resulted 09/24/17 14:55 Sputum Induced Gram Stain Pending Resulted 09/24/17 14:55 Sputum Induced Sputum Culture - Preliminary NO GROWTH Resulted 09/22/17 23:44 Nasal Nares MRSA Culture - Final NO METHICILLIN RESISTANT STAPH AUREUS... Complete 09/23/17 03:33 Urine,Clean Catch Urine Culture - Preliminary Gram Negative Bacillus 1 Resulted 09/22/17 23:44 Rectum Received Laboratory Tests 09/24/17 16:00: Vancomycin Level Trough 20.1H 09/25/17 04:00: Arterial Blood pH 7.430, Arterial Blood Partial Pressure CO2 38.1, Arterial Blood Partial Pressure O2 86.7, Arterial Blood HCO3 24.7, Arterial Blood Oxygen Saturation 96.4, Arterial Blood Base Excess 0.5, Jed Test Positive 09/25/17 04:17: White Blood Count 8.5, Red Blood Count 4.01L, Hemoglobin 10.0L, Hematocrit 31.3L , Mean Corpuscular Volume 78L, Mean Corpuscular Hemoglobin 25.0L, Mean Corpuscular Hemoglobin Concent 32.0, Red Cell Distribution Width 16.6H, Platelet Count 75L, Mean Platelet Volume 11.6H, Neutrophils (%) (Auto) , Lymphocytes (%) (Auto) , Monocytes (%) (Auto) , Eosinophils (%) (Auto) , Basophils (%) (Auto) , Differential Total Cells Counted 100, Neutrophils % ( Manual) 87H, Lymphocytes % (Manual) 7L, Monocytes % (Manual) 4, Eosinophils % ( Manual) 0, Basophils % (Manual) 0, Band Neutrophils 2, Platelet Estimate DecreasedL, Platelet Morphology Normal, Hypochromasia 1+, Anisocytosis 1+, Microcytosis 1+, Sodium Level 140, Potassium Level 3.4L, Chloride Level 105, Carbon Dioxide Level 28, Anion Gap 7, Blood Urea Nitrogen 27H, Creatinine 0.9, Estimat Glomerular Filtration Rate > 60, Glucose Level 102, Calcium Level 8.6 Current Medications Medications (Trade) Dose Ordered Sig/Reid Route PRN Reason Start Time Stop Time Status Last Admin Dose Admin Acetaminophen (Tylenol) 320 mg Q4H PRN GT MILD pain 1-3/TEMP >100.5 09/23/17 03:45 10/23/17 03:44 Acetaminophen (Tylenol) 640 mg Q4H PRN GT moderate pain 09/23/17 03:45 10/23/17 03:44 09/24/17 18:02 Albuterol/ Ipratropium (Albuterol/ Ipratropium) 3 ml Q6HRT HHN 09/23/17 07:00 09/28/17 06:59 09/25/17 07:17 Apixaban (Eliquis) 5 mg BID GT 09/23/17 09:00 10/23/17 08:59 09/23/17 17:50 Atorvastatin Calcium (Lipitor) 10 mg BEDTIME GT 09/23/17 21:00 10/23/17 20:59 09/24/17 21:54 Azithromycin 500 mg/Dextrose 275 ml @ 275 mls/hr Q24H IV 09/23/17 19:00 09/29/17 19:59 09/24/17 18:01 Carbamazepine (TEGretol) 300 mg Q8HR GT 09/23/17 06:00 10/23/17 05:59 09/25/17 05:12 Dextrose (Dextrose 50%) 25 ml STAT PRN IV Hypoglycemia 09/23/17 04:00 10/23/17 03:59 Dextrose (Dextrose 50%) 50 ml STAT PRN IV Hypoglycemia 09/23/17 04:00 10/23/17 03:59 09/24/17 06:48 Dextrose/ Electrolytes 1,000 ml @ 50 mls/hr Q20H IV 09/24/17 09:30 10/24/17 09:29 09/25/17 05:12 Levetiracetam 1500 mg/Dextrose 110 ml @ 220 mls/hr Q12HR IV 09/23/17 22:00 10/23/17 21:59 09/25/17 08:12 Lorazepam (Ativan 2mg/ml 1ml) 1 mg Q4H PRN IV For Seizures 09/23/17 04:30 09/30/17 04:29 09/23/17 12:57 Piperacillin Sod/ Tazobactam Sod 3.375 gm/Dextrose 100 ml @ 25 mls/hr Q8H IVPB 09/23/17 16:00 09/30/17 15:59 09/25/17 08:11 Vancomycin HCl (Vanco rx to dose) 1 ea DAILY PRN MISC Per rx protocol 09/23/17 15:15 10/23/17 15:14 Vancomycin/Sodium Chloride 250 ml @ 166.667 mls/hr Q8HR IVPB 09/24/17 22:00 09/29/17 21:59 09/25/17 05:12 Ochoa Sharpe MD Sep 25, 2017 09:17
--- NOTE | 2017-09-25 11:37 | Neurology Progress Note ---
Interim History Interim History Interim History Mr. Guo continues to be poorly responsive. He continues to be seizure free. He is off BiPAP. He is on appropriate antibiotics. He is still acutely ill. Review of Systems Neuro Review of Systems Unable to obtain. Objective Physical Exam Last Vital Signs Date Time Temp Pulse Resp B/P (MAP) Pulse Ox O2 Delivery O2 Flow Rate FiO2 09/25/17 10:34 154/67 (96) 09/25/17 09:06 93 32 98 Facial 60 09/25/17 08:00 97.9 97.9 09/25/17 08:00 16.0 Laboratory Tests Test 09/24/17 16:00 09/25/17 04:00 09/25/17 04:17 Vancomycin Level Trough 20.1 ug/mL (5.0-12.0) H Arterial Blood pH 7.430 (7.350-7.450) Arterial Blood Partial Pressure CO2 38.1 mmHg (35.0-45.0) Arterial Blood Partial Pressure O2 86.7 mmHg (75.0-100.0) Arterial Blood HCO3 24.7 mmol/L (22.0-26.0) Arterial Blood Oxygen Saturation 96.4 % (92.0-98.0) Arterial Blood Base Excess 0.5 Jed Test Positive White Blood Count 8.5 K/UL (4.8-10.8) Red Blood Count 4.01 M/UL (4.70-6.10) L Hemoglobin 10.0 G/DL (14.2-18.0) L Hematocrit 31.3 % (42.0-52.0) L Mean Corpuscular Volume 78 FL (80-99) L Mean Corpuscular Hemoglobin 25.0 PG (27.0-31.0) L Mean Corpuscular Hemoglobin Concent 32.0 G/DL (32.0-36.0) Red Cell Distribution Width 16.6 % (11.6-14.8) H Platelet Count 75 K/UL (150-450) L Mean Platelet Volume 11.6 FL (6.5-10.1) H Neutrophils (%) (Auto) % (45.0-75.0) Lymphocytes (%) (Auto) % (20.0-45.0) Monocytes (%) (Auto) % (1.0-10.0) Eosinophils (%) (Auto) % (0.0-3.0) Basophils (%) (Auto) % (0.0-2.0) Differential Total Cells Counted 100 Neutrophils % (Manual) 87 % (45-75) H Lymphocytes % (Manual) 7 % (20-45) L Monocytes % (Manual) 4 % (1-10) Eosinophils % (Manual) 0 % (0-3) Basophils % (Manual) 0 % (0-2) Band Neutrophils 2 % (0-8) Platelet Estimate Decreased L Platelet Morphology Normal Hypochromasia 1+ Anisocytosis 1+ Microcytosis 1+ Sodium Level 140 MMOL/L (136-145) Potassium Level 3.4 MMOL/L (3.5-5.1) L Chloride Level 105 MMOL/L (98-107) Carbon Dioxide Level 28 MMOL/L (21-32) Anion Gap 7 mmol/L (5-15) Blood Urea Nitrogen 27 mg/dL (7-18) H Creatinine 0.9 MG/DL (0.55-1.30) Estimat Glomerular Filtration Rate > 60 mL/min (>60) Glucose Level 102 MG/DL (74-106) Calcium Level 8.6 MG/DL (8.5-10.1) Neurologic Exam Objective PHYSICAL EXAMINATION: GENERAL: He is a well-developed, well-nourished, black gentleman, lying in bed , in no acute distress. HEAD: Normocephalic with right frontotemporoparietal craniotomy. EENT: Benign except for opacified right cornea. NECK: No neck rigidity was observed. NEUROLOGICAL EXAMINATION: MENTAL STATUS EXAMINATION: He could be aroused minimally on deep pain. Further mental status testing was thus impossible. SPEECH: Could not be tested. LANGUAGE: Could not be tested. CRANIAL NERVE EXAMINATION: II: He did not blink to threat. He had a right-sided corneal opacity. III, IV & : External ocular movements were present on oculocephalic maneuvers. The right pupil could not be visualized. The left pupil was 3 mm in diameter and did not react to light. V & VII: The corneal reflexes were present bilaterally, but the left-sided reflex was diminished compared to the right. VIII: He did not respond to sounds and had no nystagmus. IX & X: Could not be tested because he was on a BiPAP mask. XI: The sternocleidomastoids and trapezii did not function. XII: Could not be tested. MOTOR SYSTEM: The tone was normal on the right and spastic on the left. Examination of muscle mass revealed mild wasting of the left upper and lower extremities. Examination of power could not be performed because even on applying deep painful stimuli, the only movements seen were reflex withdrawal in the lower extremities. He withdrew the right side more than the left. SENSORY EXAMINATION: He did not respond to deep pain, other than reflex withdrawal in the lower extremities. REFLEXES: 0 at the biceps, triceps, brachioradialis, knees, and ankles. The plantar responses were extensor bilaterally. COORDINATION, STANCE & GAIT: Could not be tested. Impression/Recommendations Diagnostic Impression 1. Mr. 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 He was hospitalized after having seizures at his correction. He was discovered to have a urinary tract infection and pneumonia. He continued to have recurrent seizures in the hospital with his last seizure at approximately 1 p.m on 09/23/17. 2. He continues to be poorly responsive. He continues to be seizure free. He is off BiPAP. He is on appropriate antibiotics. He is still acutely ill. 3. On neurological examination at this time, he can be aroused minimally on deep pain. He does not blink to threat. His eye movements were present on oculocephalic maneuvers. The corneal reflexes are present with the left side reflex diminished compared to the right. His left pupil is 3 mm and nonreactive. His right pupil cannot be visualized. He does not move to deep pain except for reflex withdrawal in both lower extremities, right > left, and his deep tendon reflexes are absent. His plantar responses are extensor bilaterally. 4. The CT scan of the brain without contrast reveals severe encephalomalacia in the right frontotemporoparietal area and less severe encephalomalacia in the left frontal area. 5. His latest laboratory data on my initial evaluation revealed that he was anemic with a hemoglobin of 12.6 G. His chemistry panel revealed that his BUN was elevated to 26, his glucose was elevated at 112, his AST was elevated at 45 , his alkaline phosphatase was elevated at 215, and his albumin was low at 3.0. His lactic acid was elevated to 12.4 on admission but was 1.2 later. His carbamazepine level was therapeutic at 6.8. His urinalysis revealed 3+ leukocyte esterase, 15 to 20 red blood cells per high-power field, and too numerous to count white blood cells per high-power field with many bacteria. 6. His chest x-ray revealed asymmetric right-sided opacities most pronounced at the medial right base consistent with pneumonic process. 7. The patient's history, neurological examination, laboratory data, and imaging studies are most compatible with breakthrough seizures in a patient who has had severe prior brain injury and an underlying seizure disorder, who was on relatively low doses of anticonvulsants and now has a superimposed urinary tract infection and pneumonia. 8. His seizures are now controlled. Recommendations 1. Continue present management. 2. Continue Keppra 1.5 G intravenously taken every 12 hours. 3. Continue Tegretol at his present dose. 4. Ativan should only be given for status epilepticus and not for every single seizure. It was made very clear to the nurse that should be done. 5. Correction of respiratory status as per Dr. Sharpe. 6. Treatment of infectious processes as per Dr. Murphy. 7. Observe closely. Watson Trevizo M.D., M.S.P.[place] Sep 25, 2017 11:37
[2017-09-25] MEDS ORDERED: cloNIDine 0.2mg Tab GT PRN ×2 (14:45→17:30)
--- NOTE | 2017-09-25 16:45 | Cardiology Progress Note ---
Assessment/Plan Assessment/Plan 1. Transient type 2 second-degree AV block. I would avoid AV anthony agents. Currently, the patient is in sinus tach. Given the patient's severe debilitation, I would not believe that he would benefit from any aggressive interventions. He is not a candidate for pacemaker implantation. The periods of AV anthony block is very short and transient and unlikely to cause any symptoms. I would continue conservative management and monitoring the rhythm closely. At this time, I have not noticed any tachyarrhythmia, however, I must mention that the patient is on Eliquis therapy and I suspect that the patient may have paroxysmal atrial fibrillation. 2. History of CVA with left hemiparesis, possibly embolic given being on Eliquis. 3. History of seizure disorder. 4. Thrombocytopenia, suspect antiseizure medication to be culprit. Eliquis can also cause decrease in platelet count. Objective Last 24 Hour Vital Signs Date Time Temp Pulse Resp B/P (MAP) Pulse Ox O2 Delivery O2 Flow Rate FiO2 09/25/17 16:00 Non-Rebreather 16.0 09/25/17 16:00 15.0 09/25/17 16:00 97.6 103 30 173/68 (103) 94 97.6 09/25/17 16:00 112 09/25/17 15:51 173/68 09/25/17 14:48 102 163/71 09/25/17 13:50 102 28 97 Non-Rebreather 15.0 100 09/25/17 13:40 99 32 96 Non-Rebreather 15.0 100 09/25/17 12:00 97.9 92 22 163/71 (101) 100 97.9 09/25/17 12:00 16.0 09/25/17 12:00 Non-Rebreather 16.0 09/25/17 12:00 92 09/25/17 10:34 154/67 (96) 09/25/17 09:06 93 32 98 Facial 60 09/25/17 08:22 79 09/25/17 08:00 97.9 98 32 162/70 (100) 99 97.9 09/25/17 08:00 Bi-pap 16.0 09/25/17 08:00 60 09/25/17 07:25 81 27 100 Bi-pap 60 09/25/17 07:18 85 30 98 Bi-pap 60 8/2/18 07:16 85 28 98 Facial 60 09/25/17 05:00 81 29 99 Facial 60 09/25/17 04:00 Bi-pap 16.0 09/25/17 04:00 60 09/25/17 04:00 94 09/25/17 04:00 97.5 62 25 130/57 (81) 100 97.5 09/25/17 03:30 97 36 99 Facial 60 09/25/17 01:34 99 36 99 Bi-pap 60 09/25/17 01:19 100 28 99 Facial 60 09/25/17 01:19 100 28 99 Bi-pap 60 09/25/17 00:00 98.2 101 25 151/59 (89) 99 98.2 09/25/17 00:00 99 09/25/17 00:00 60 09/25/17 00:00 Bi-pap 16.0 09/24/17 23:25 102 33 98 Full Face 60 09/24/17 21:29 112 38 96 Full Face 70 09/24/17 20:01 117 34 97 Bi-pap 70 09/24/17 20:00 75 09/24/17 20:00 109 09/24/17 20:00 98.6 113 35 136/50 (78) 94 98.6 09/24/17 20:00 Bi-pap 16.0 09/24/17 19:51 111 30 97 Bi-pap 70 09/24/17 19:51 111 30 97 Full Face 70 09/24/17 18:25 98.2 09/24/17 18:02 98.2 09/24/17 16:46 112 35 96 Full Face 75 Intake and Output 09/24/17 09/25/17 19:00 07:00 Intake Total 1337 ml 975.000 ml Output Total 50 ml Balance 1287 ml 975.000 ml Intake IV Total 1297 ml 955.000 ml Other 40 ml 20 ml Output Urine Total 50 ml # Voids 1 1 Laboratory Tests Test 09/25/17 04:00 09/25/17 04:17 09/25/17 11:30 Arterial Blood pH 7.430 (7.350-7.450) 7.400 (7.350-7.450) Arterial Blood Partial Pressure CO2 38.1 mmHg (35.0-45.0) 44.8 mmHg (35.0-45.0) Arterial Blood Partial Pressure O2 86.7 mmHg (75.0-100.0) 124.8 mmHg (75.0-100.0) H Arterial Blood HCO3 24.7 mmol/L (22.0-26.0) 27.1 mmol/L (22.0-26.0) H Arterial Blood Oxygen Saturation 96.4 % (92.0-98.0) 98.1 % (92.0-98.0) H Arterial Blood Base Excess 0.5 2.0 Jed Test Positive Positive White Blood Count 8.5 K/UL (4.8-10.8) Red Blood Count 4.01 M/UL (4.70-6.10) L Hemoglobin 10.0 G/DL (14.2-18.0) L Hematocrit 31.3 % (42.0-52.0) L Mean Corpuscular Volume 78 FL (80-99) L Mean Corpuscular Hemoglobin 25.0 PG (27.0-31.0) L Mean Corpuscular Hemoglobin Concent 32.0 G/DL (32.0-36.0) Red Cell Distribution Width 16.6 % (11.6-14.8) H Platelet Count 75 K/UL (150-450) L Mean Platelet Volume 11.6 FL (6.5-10.1) H Neutrophils (%) (Auto) % (45.0-75.0) Lymphocytes (%) (Auto) % (20.0-45.0) Monocytes (%) (Auto) % (1.0-10.0) Eosinophils (%) (Auto) % (0.0-3.0) Basophils (%) (Auto) % (0.0-2.0) Differential Total Cells Counted 100 Neutrophils % (Manual) 87 % (45-75) H Lymphocytes % (Manual) 7 % (20-45) L Monocytes % (Manual) 4 % (1-10) Eosinophils % (Manual) 0 % (0-3) Basophils % (Manual) 0 % (0-2) Band Neutrophils 2 % (0-8) Platelet Estimate Decreased L Platelet Morphology Normal Hypochromasia 1+ Anisocytosis 1+ Microcytosis 1+ Sodium Level 140 MMOL/L (136-145) Potassium Level 3.4 MMOL/L (3.5-5.1) L Chloride Level 105 MMOL/L (98-107) Carbon Dioxide Level 28 MMOL/L (21-32) Anion Gap 7 mmol/L (5-15) Blood Urea Nitrogen 27 mg/dL (7-18) H Creatinine 0.9 MG/DL (0.55-1.30) Estimat Glomerular Filtration Rate > 60 mL/min (>60) Glucose Level 102 MG/DL (74-106) Calcium Level 8.6 MG/DL (8.5-10.1) Microbiology Date/Time Source Procedure Growth Status 09/22/17 21:45 Blood Blood Culture - Preliminary Staphylococcus Sp Coag Neg Resulted 09/22/17 21:30 Blood Blood Culture - Preliminary Staphylococcus Sp Coag Neg Resulted 09/24/17 14:55 Sputum Induced Gram Stain - Final Resulted 09/24/17 14:55 Sputum Induced Sputum Culture - Preliminary NO GROWTH Resulted 09/22/17 23:44 Nasal Nares MRSA Culture - Final NO METHICILLIN RESISTANT STAPH AUREUS... Complete 09/23/17 03:33 Urine,Clean Catch Urine Culture - Preliminary Gram Negative Bacillus 1 Resulted 09/22/17 23:44 Rectum VRE Culture - Final NO VANCOMYCIN RESISTANT ENTEROCOCCUS ... Complete 09/22/17 23:44 Rectum - Final NO CARBAPENEM-RESISTANT ENTEROBACTERI... Complete Objective GENERAL: The patient is a very unfortunate 62-year-old gentleman, nonverbal. HEENT: Atraumatic and normocephalic. Anicteric. Right corneal ulceration. Left eye, pupil is reactive to light and accommodation. NECK: Cannot be assessed at this time. No carotid bruit. CARDIOVASCULAR SYSTEM: Normal S1, S2. Regular rate and rhythm. Tachycardic. No murmurs, gallops, or rubs. PMI is at fourth intercostal space at the midclavicular line. LUNGS: Diminished breath sounds in both bases. ABDOMEN: Soft, nontender, and nondistended. Positive bowel sounds. Positive G-tube in place. EXTREMITIES: No evidence of edema, clubbing, or cyanosis. Juan Hogan MD Sep 25, 2017 16:45
[2017-09-25] MEDS: Azithromycin 500 MG in D5W 275 ML IV SCH (19:14)
--- NOTE | 2017-09-25 21:02 | Cardiology Progress Note ---
Assessment/Plan Assessment/Plan 1. Transient type 2 second-degree AV block, avoid AV anthony agents. Currently, the patient is in sinus tachycardia. Conservative management, no need for pacemaker implant at this time due to severe debilitation. Echo reveals normal LVEF. 2. Probably PAF, on Eliquis 3. History of CVA with left hemiparesis. 4. History of seizure disorder. 5. Thrombocytopenia 6. Severe pulmonary HTN. Subjective Subjective No evidence of AV anthony block in the past [address] at 110. Objective Last 24 Hour Vital Signs Date Time Temp Pulse Resp B/P (MAP) Pulse Ox O2 Delivery O2 Flow Rate FiO2 09/25/17 20:00 Non-Rebreather 16.0 09/25/17 20:00 98.2 115 24 138/47 (77) 97 98.2 09/25/17 20:00 16.0 09/25/17 19:55 118 35 96 Non-Rebreather 15.0 100 09/25/17 19:41 97 Non-Rebreather 15.0 100 09/25/17 19:41 Non-Rebreather 15.0 100 09/25/17 19:41 109 30 97 Non-Rebreather 15.0 100 09/25/17 19:06 108 09/25/17 17:02 158/69 (98) 09/25/17 16:00 Non-Rebreather 16.0 09/25/17 16:00 15.0 09/25/17 16:00 97.6 103 30 173/68 (103) 94 97.6 09/25/17 16:00 112 09/25/17 15:51 173/68 09/25/17 14:48 102 163/71 09/25/17 13:50 102 28 97 Non-Rebreather 15.0 100 09/25/17 13:40 99 32 96 Non-Rebreather 15.0 100 09/25/17 12:00 97.9 92 22 163/71 (101) 100 97.9 09/25/17 12:00 16.0 09/25/17 12:00 Non-Rebreather 16.0 09/25/17 12:00 92 09/25/17 10:34 154/67 (96) 09/25/17 09:06 93 32 98 Facial 60 09/25/17 08:22 79 09/25/17 08:00 97.9 98 32 162/70 (100) 99 97.9 09/25/17 08:00 Bi-pap 16.0 09/25/17 08:00 60 09/25/17 07:25 81 27 100 Bi-pap 60 09/25/17 07:18 85 30 98 Bi-pap 60 09/25/17 07:16 85 28 98 Facial 60 09/25/17 05:00 81 29 99 Facial 60 09/25/17 04:00 Bi-pap 16.0 09/25/17 04:00 60 09/25/17 04:00 94 09/25/17 04:00 97.5 62 25 130/57 (81) 100 97.5 09/25/17 03:30 97 36 99 Facial 60 09/25/17 01:34 99 36 99 Bi-pap 60 09/25/17 01:19 100 28 99 Facial 60 09/25/17 01:19 100 28 99 Bi-pap 60 09/25/17 00:00 98.2 101 25 151/59 (89) 99 98.2 09/25/17 00:00 99 09/25/17 00:00 60 09/25/17 00:00 Bi-pap 16.0 09/24/17 23:25 102 33 98 Full Face 60 09/24/17 21:29 112 38 96 Full Face 70 Intake and Output 09/24/17 09/25/17 19:00 07:00 Intake Total 1337 ml 975.000 ml Output Total 50 ml Balance 1287 ml 975.000 ml Intake IV Total 1297 ml 955.000 ml Other 40 ml 20 ml Output Urine Total 50 ml # Voids 1 1 2D Echo: EF 55-60%, Increased RAP ~15 mmHg, RVSP 68 mmHg Laboratory Tests Test 09/25/17 04:00 09/25/17 04:17 09/25/17 11:30 Arterial Blood pH 7.430 (7.350-7.450) 7.400 (7.350-7.450) Arterial Blood Partial Pressure CO2 38.1 mmHg (35.0-45.0) 44.8 mmHg (35.0-45.0) Arterial Blood Partial Pressure O2 86.7 mmHg (75.0-100.0) 124.8 mmHg (75.0-100.0) H Arterial Blood HCO3 24.7 mmol/L (22.0-26.0) 27.1 mmol/L (22.0-26.0) H Arterial Blood Oxygen Saturation 96.4 % (92.0-98.0) 98.1 % (92.0-98.0) H Arterial Blood Base Excess 0.5 2.0 Jed Test Positive Positive White Blood Count 8.5 K/UL (4.8-10.8) Red Blood Count 4.01 M/UL (4.70-6.10) L Hemoglobin 10.0 G/DL (14.2-18.0) L Hematocrit 31.3 % (42.0-52.0) L Mean Corpuscular Volume 78 FL (80-99) L Mean Corpuscular Hemoglobin 25.0 PG (27.0-31.0) L Mean Corpuscular Hemoglobin Concent 32.0 G/DL (32.0-36.0) Red Cell Distribution Width 16.6 % (11.6-14.8) H Platelet Count 75 K/UL (150-450) L Mean Platelet Volume 11.6 FL (6.5-10.1) H Neutrophils (%) (Auto) % (45.0-75.0) Lymphocytes (%) (Auto) % (20.0-45.0) Monocytes (%) (Auto) % (1.0-10.0) Eosinophils (%) (Auto) % (0.0-3.0) Basophils (%) (Auto) % (0.0-2.0) Differential Total Cells Counted 100 Neutrophils % (Manual) 87 % (45-75) H Lymphocytes % (Manual) 7 % (20-45) L Monocytes % (Manual) 4 % (1-10) Eosinophils % (Manual) 0 % (0-3) Basophils % (Manual) 0 % (0-2) Band Neutrophils 2 % (0-8) Platelet Estimate Decreased L Platelet Morphology Normal Hypochromasia 1+ Anisocytosis 1+ Microcytosis 1+ Sodium Level 140 MMOL/L (136-145) Potassium Level 3.4 MMOL/L (3.5-5.1) L Chloride Level 105 MMOL/L (98-107) Carbon Dioxide Level 28 MMOL/L (21-32) Anion Gap 7 mmol/L (5-15) Blood Urea Nitrogen 27 mg/dL (7-18) H Creatinine 0.9 MG/DL (0.55-1.30) Estimat Glomerular Filtration Rate > 60 mL/min (>60) Glucose Level 102 MG/DL (74-106) Calcium Level 8.6 MG/DL (8.5-10.1) Microbiology Date/Time Source Procedure Growth Status 09/22/17 21:45 Blood Blood Culture - Preliminary Staphylococcus Sp Coag Neg Resulted 09/22/17 21:30 Blood Blood Culture - Preliminary Staphylococcus Sp Coag Neg Resulted 09/24/17 14:55 Sputum Induced Gram Stain - Final Resulted 09/24/17 14:55 Sputum Induced Sputum Culture - Preliminary NO GROWTH Resulted 09/22/17 23:44 Nasal Nares MRSA Culture - Final NO METHICILLIN RESISTANT STAPH AUREUS... Complete 09/23/17 03:33 Urine,Clean Catch Urine Culture - Preliminary Gram Negative Bacillus 1 Resulted 09/22/17 23:44 Rectum VRE Culture - Final NO VANCOMYCIN RESISTANT ENTEROCOCCUS ... Complete 09/22/17 23:44 Rectum - Final NO CARBAPENEM-RESISTANT ENTEROBACTERI... Complete Objective HEENT: Atraumatic and normocephalic. Anicteric. Right corneal ulceration. Left eye, pupil is reactive to light and accommodation. NECK: Cannot be assessed at this time. No carotid bruit. CARDIOVASCULAR SYSTEM: Normal S1, S2. Regular rate and rhythm. Tachycardic. No murmurs, gallops, or rubs. PMI is at fourth intercostal space at the midclavicular line. LUNGS: Diminished breath sounds in both bases. ABDOMEN: Soft, nontender, and nondistended. Positive bowel sounds. Positive G-tube in place. EXTREMITIES: No evidence of edema, clubbing, or cyanosis. Juan Hogan MD Sep 25, 2017 21:01
[2017-09-26] VITALS (7 sets, daily range): BP systolic 117–141; BP diastolic 60–100
[2017-09-26] MEDS: Albuterol/Ipratropium 3ml neb HHN SCH ×4 (01:47→19:26)
[2017-09-26 04:21] LABS: HEMATOCRIT 31.4 % (42.0-52.0); HEMOGLOBIN 9.8 G/DL (14.2-18.0); MEAN CORPUSCULAR VOLUME 78 FL (80-99); PLATELET COUNT 59 K/UL (150-450); RED BLOOD COUNT 4.01 M/UL (4.70-6.10); RED CELL DISTRIBUTION WIDTH 16.6 % (11.6-14.8); WHITE BLOOD COUNT 8.4 K/UL (4.8-10.8)
[2017-09-26 04:25] LABS: ANION GAP 8 mmol/L (5-15); BLOOD UREA NITROGEN 20 mg/dL (7-18); CALCIUM 8.4 MG/DL (8.5-10.1); CARBON DIOXIDE 27 MMOL/L (21-32); CHLORIDE 106 MMOL/L (98-107); CREATININE 0.7 MG/DL (0.55-1.30); POTASSIUM 3.4 MMOL/L (3.5-5.1); SODIUM 141 MMOL/L (136-145)
[2017-09-26] MEDS: Vancomycin 750mg/NS 250ml IVPB SCH ×3 (05:30→21:57)
[2017-09-26] MEDS: carBAMazepine 200mg tab GT SCH ×3 (05:31→21:35)
[2017-09-26] MEDS: DEXTROSE IV SCH ×2 (08:49→21:57)
[2017-09-26] MEDS: LEVETIRACETAM IV SCH ×2 (08:49→21:57)
[2017-09-26] MEDS: Eliquis 2.5mg tablet GT SCH ×2 (09:00→18:00)
[2017-09-26] MEDS ORDERED: NS 275ml ONE (09:44)
[2017-09-26] MEDS ORDERED: Sterile Water Irrig 1000ml IRRIG ONE (09:44)
[2017-09-26] MEDS ORDERED: NS 500ML ONE (09:44)
--- NOTE | 2017-09-26 10:37 | Diagnostic Imaging Report ---
Indication: Dyspnea Technique: One view of the chest Comparison: 09/24/2017 Findings: Extensive bilateral diffuse interstitial and airspace consolidation or edema is again demonstrated, right greater than left, worsening bilaterally. The heart borders are largely obscured, heart not enlarged on previous exam. Impression: Worsening extensive bilateral diffuse interstitial and airspace infiltrates versus edema, over 2 days
--- NOTE | 2017-09-26 10:44 | Pulmonology Progress Note ---
Assessment/Plan Assessment/Plan IMPRESSION: 1. Respiratory acidosis. resolved. 2. Acute respiratory failure. now on nonrebreather mas 3. Sepsis. 4. UTI. 5. Probable pneumonia. 6. Seizure disorder. 7. Previous CVA. 8. Aspiration pneumonia. 9. Hypertension. DISCUSSION: ABG better; is borderline hypoxic on NRBM Continue broad-spectrum antibiotics. ID following' Continue Tegretol and continue Keppra. I will follow carefully. Neuro consult noted Having hypoglycemic episodes; will continue dextrose and add tube feedings Cardiology consult noted for bradycardia prognosis remains poor Subjective Interval Events: no longer on BiPAP. Remains poorly responsive. On nonrebreather mask Constitutional: Reports: no symptoms HEENT: Repors: no symptoms Respiratory: Reports: no symptoms Cardiovascular: Reports: no symptoms Gastrointestinal/Abdominal: Reports: no symptoms Allergies: Coded Allergies: PHENYTOIN (Unverified Allergy, Unknown, 09/22/17) Objective Last 24 Hour Vital Signs Date Time Temp Pulse Resp B/P (MAP) Pulse Ox O2 Delivery O2 Flow Rate FiO2 09/26/17 10:30 79 31 96 Facial 100 09/26/17 09:30 96 140/100 09/26/17 09:28 93 23 92 Facial 100 09/26/17 08:00 96.8 91 18 140/100 (113) 89 96.8 09/26/17 07:46 96 31 92 Non-Rebreather 15.0 100 09/26/17 07:36 90 32 94 Non-Rebreather 15.0 100 09/26/17 07:35 Non-Rebreather 15.0 100 09/26/17 07:35 93 Non-Rebreather 15.0 100 09/26/17 04:00 Non-Rebreather 16.0 09/26/17 04:00 16.0 09/26/17 04:00 98.3 90 25 140/62 (88) 97 98.3 09/26/17 03:38 90 09/26/17 01:58 103 26 97 Non-Rebreather 15.0 100 09/26/17 01:46 99 25 95 Non-Rebreather 15.0 100 09/26/17 00:00 Non-Rebreather 16.0 09/26/17 00:00 98.1 103 27 141/60 (87) 99 98.1 09/25/17 23:35 98 09/25/17 20:00 Non-Rebreather 16.0 09/25/17 20:00 98.2 115 24 138/47 (77) 97 98.2 09/25/17 20:00 16.0 09/25/17 19:55 118 35 96 Non-Rebreather 15.0 100 09/25/17 19:41 97 Non-Rebreather 15.0 100 09/25/17 19:41 Non-Rebreather 15.0 100 09/25/17 19:41 109 30 97 Non-Rebreather 15.0 100 09/25/17 19:06 108 09/25/17 17:02 158/69 (98) 09/25/17 16:00 Non-Rebreather 16.0 09/25/17 16:00 15.0 09/25/17 16:00 97.6 103 30 173/68 (103) 94 97.6 09/25/17 16:00 112 09/25/17 15:51 173/68 09/25/17 14:48 102 163/71 09/25/17 13:50 102 28 97 Non-Rebreather 15.0 100 09/25/17 13:40 99 32 96 Non-Rebreather 15.0 100 09/25/17 12:00 97.9 92 22 163/71 (101) 100 97.9 09/25/17 12:00 16.0 09/25/17 12:00 Non-Rebreather 16.0 09/25/17 12:00 92 Intake and Output 09/25/17 09/26/17 19:00 07:00 Intake Total 1330.000 ml 1478.3 ml Output Total 600 ml 500 ml Balance 730.000 ml 978.3 ml Intake Free Water 90 ml IV Total 1080.000 ml 1068.3 ml Tube Feeding 200 ml 240 ml Other 50 ml 80 ml Output Urine Total 600 ml 500 ml General Appearance: no acute distress HEENT: normocephalic Respiratory/Chest: chest wall non-tender, lungs clear Cardiovascular: normal peripheral pulses, normal rate Abdomen: normal bowel sounds Extremities: no cyanosis Microbiology Date/Time Source Procedure Growth Status 09/24/17 11:05 Blood Blood Culture - Preliminary NO GROWTH AFTER 24 HOURS Resulted 09/24/17 10:55 Blood Blood Culture - Preliminary NO GROWTH AFTER 24 HOURS Resulted 09/24/17 14:55 Sputum Induced Gram Stain - Final Resulted 09/24/17 14:55 Sputum Culture - Preliminary YEAST Resulted Laboratory Tests 09/25/17 11:30: Arterial Blood pH 7.400, Arterial Blood Partial Pressure CO2 44.8, Arterial Blood Partial Pressure O2 124.8H, Arterial Blood HCO3 27.1H, Arterial Blood Oxygen Saturation 98.1H, Arterial Blood Base Excess 2.0, Jed Test Positive 09/25/17 21:10: Vancomycin Level Trough 18.6H 09/26/17 04:00: White Blood Count 8.4, Red Blood Count 4.01L, Hemoglobin 9.8L, Hematocrit 31.4L , Mean Corpuscular Volume 78L, Mean Corpuscular Hemoglobin 24.6L, Mean Corpuscular Hemoglobin Concent 31.4L, Red Cell Distribution Width 16.6H, Platelet Count 59L, Mean Platelet Volume 10.3H, Neutrophils (%) (Auto) , Lymphocytes (%) (Auto) , Monocytes (%) (Auto) , Eosinophils (%) (Auto) , Basophils (%) (Auto) , Differential Total Cells Counted 100, Neutrophils % ( Manual) 67, Lymphocytes % (Manual) 7L, Monocytes % (Manual) 1, Eosinophils % ( Manual) 1, Basophils % (Manual) 0, Metamyelocytes % 2H, Band Neutrophils 22H, Platelet Estimate DecreasedL, Platelet Morphology Normal, Hypochromasia 2+, Anisocytosis 1+, Microcytosis 1+, Target Cells Occasional, Sodium Level 141, Potassium Level 3.4L, Chloride Level 106, Carbon Dioxide Level 27, Anion Gap 8, Blood Urea Nitrogen 20H, Creatinine 0.7, Estimat Glomerular Filtration Rate > 60 , Glucose Level 101, Calcium Level 8.4L 09/26/17 07:46: Arterial Blood pH 7.380, Arterial Blood Partial Pressure CO2 42.2, Arterial Blood Partial Pressure O2 59.1L, Arterial Blood HCO3 24.7, Arterial Blood Oxygen Saturation 90.4L, Arterial Blood Base Excess -0.4, Jed Test Positive Current Medications Medications (Trade) Dose Ordered Sig/Reid Route PRN Reason Start Time Stop Time Status Last Admin Dose Admin Acetaminophen (Tylenol) 320 mg Q4H PRN GT MILD pain 1-3/TEMP >100.5 09/23/17 03:45 10/23/17 03:44 Acetaminophen (Tylenol) 640 mg Q4H PRN GT moderate pain 09/23/17 03:45 10/23/17 03:44 09/24/17 18:02 Albuterol/ Ipratropium (Albuterol/ Ipratropium) 3 ml Q6HRT HHN 09/23/17 07:00 09/28/17 06:59 09/26/17 07:36 Amlodipine Besylate (Norvasc) 5 mg DAILY GT 09/25/17 14:45 10/25/17 14:44 09/26/17 09:30 Apixaban (Eliquis) 5 mg BID GT 09/23/17 09:00 10/23/17 08:59 09/23/17 17:50 Atorvastatin Calcium (Lipitor) 10 mg BEDTIME GT 09/23/17 21:00 10/23/17 20:59 09/25/17 20:36 Azithromycin 500 mg/Dextrose 275 ml @ 275 mls/hr Q24H IV 09/23/17 19:00 09/29/17 19:59 09/25/17 19:14 Carbamazepine (TEGretol) 300 mg Q8HR GT 09/23/17 06:00 10/23/17 05:59 09/26/17 05:31 Clonidine HCl (Catapres tab) 0.4 mg Q6H PRN GT For High Blood Pressure 09/25/17 17:30 10/25/17 17:29 Dextrose (Dextrose 50%) 25 ml STAT PRN IV Hypoglycemia 09/23/17 04:00 10/23/17 03:59 Dextrose (Dextrose 50%) 50 ml STAT PRN IV Hypoglycemia 09/23/17 04:00 10/23/17 03:59 09/24/17 06:48 Dextrose/ Electrolytes 1,000 ml @ 50 mls/hr Q20H IV 09/24/17 09:30 10/24/17 09:29 09/26/17 01:28 Levetiracetam 1500 mg/Dextrose 110 ml @ 220 mls/hr Q12HR IV 09/23/17 22:00 10/23/17 21:59 09/26/17 08:49 Lorazepam (Ativan 2mg/ml 1ml) 1 mg Q4H PRN IV For Seizures 09/23/17 04:30 09/30/17 04:29 09/23/17 12:57 Piperacillin Sod/ Tazobactam Sod 3.375 gm/Dextrose 100 ml @ 25 mls/hr Q8H IVPB 09/23/17 16:00 09/30/17 15:59 09/26/17 08:37 Vancomycin HCl (Vanco rx to dose) 1 ea DAILY PRN MISC Per rx protocol 09/23/17 15:15 10/23/17 15:14 Vancomycin/Sodium Chloride 250 ml @ 166.667 mls/hr Q8HR IVPB 09/24/17 22:00 09/29/17 21:59 09/26/17 05:30 Ochoa Sharpe MD Sep 26, 2017 10:44
--- NOTE | 2017-09-26 11:46 | Neurology Progress Note ---
Interim History Interim History Interim History Mr. Guo can be aroused today. He opens his eyes on painful stimulation. He however is non verbal and does not follow commands. He continues to be poorly responsive. He continues to be seizure free. He is back on BiPAP. He is on appropriate antibiotics. He is still acutely ill. Review of Systems Neuro Review of Systems Unable to obtain. Objective Physical Exam Last Vital Signs Date Time Temp Pulse Resp B/P (MAP) Pulse Ox O2 Delivery O2 Flow Rate FiO2 09/26/17 10:30 79 31 96 Facial 100 09/26/17 09:30 140/100 09/26/17 08:00 16.0 09/26/17 08:00 96.8 96.8 Laboratory Tests Test 09/25/17 21:10 09/26/17 04:00 09/26/17 07:46 Vancomycin Level Trough 18.6 ug/mL (5.0-12.0) H White Blood Count 8.4 K/UL (4.8-10.8) Red Blood Count 4.01 M/UL (4.70-6.10) L Hemoglobin 9.8 G/DL (14.2-18.0) L Hematocrit 31.4 % (42.0-52.0) L Mean Corpuscular Volume 78 FL (80-99) L Mean Corpuscular Hemoglobin 24.6 PG (27.0-31.0) L Mean Corpuscular Hemoglobin Concent 31.4 G/DL (32.0-36.0) L Red Cell Distribution Width 16.6 % (11.6-14.8) H Platelet Count 59 K/UL (150-450) L Mean Platelet Volume 10.3 FL (6.5-10.1) H Neutrophils (%) (Auto) % (45.0-75.0) Lymphocytes (%) (Auto) % (20.0-45.0) Monocytes (%) (Auto) % (1.0-10.0) Eosinophils (%) (Auto) % (0.0-3.0) Basophils (%) (Auto) % (0.0-2.0) Differential Total Cells Counted 100 Neutrophils % (Manual) 67 % (45-75) Lymphocytes % (Manual) 7 % (20-45) L Monocytes % (Manual) 1 % (1-10) Eosinophils % (Manual) 1 % (0-3) Basophils % (Manual) 0 % (0-2) Metamyelocytes % 2 % (0-0) H Band Neutrophils 22 % (0-8) H Platelet Estimate Decreased L Platelet Morphology Normal Hypochromasia 2+ Anisocytosis 1+ Microcytosis 1+ Target Cells Occasional Sodium Level 141 MMOL/L (136-145) Potassium Level 3.4 MMOL/L (3.5-5.1) L Chloride Level 106 MMOL/L (98-107) Carbon Dioxide Level 27 MMOL/L (21-32) Anion Gap 8 mmol/L (5-15) Blood Urea Nitrogen 20 mg/dL (7-18) H Creatinine 0.7 MG/DL (0.55-1.30) Estimat Glomerular Filtration Rate > 60 mL/min (>60) Glucose Level 101 MG/DL (74-106) Calcium Level 8.4 MG/DL (8.5-10.1) L Arterial Blood pH 7.380 (7.350-7.450) Arterial Blood Partial Pressure CO2 42.2 mmHg (35.0-45.0) Arterial Blood Partial Pressure O2 59.1 mmHg (75.0-100.0) L Arterial Blood HCO3 24.7 mmol/L (22.0-26.0) Arterial Blood Oxygen Saturation 90.4 % (92.0-98.0) L Arterial Blood Base Excess -0.4 Jed Test Positive Neurologic Exam Objective PHYSICAL EXAMINATION: GENERAL: He is a well-developed, well-nourished, black gentleman, lying in bed, in no acute distress. HEAD: Normocephalic with right frontotemporoparietal craniotomy. EENT: Benign except for opacified right cornea. NECK: No neck rigidity was observed. NEUROLOGICAL EXAMINATION: MENTAL STATUS EXAMINATION: He could be aroused minimally on deep pain. He opens his eyes on painful stimulation. He however is non verbal and does not follow commands. He continues to be poorly responsive. Further mental status testing was thus impossible. SPEECH: Could not be tested. LANGUAGE: Could not be tested. CRANIAL NERVE EXAMINATION: II: He did not blink to threat. He had a right-sided corneal opacity. III, IV & : External ocular movements were present on oculocephalic maneuvers. The right pupil could not be visualized. The left pupil was 3 mm in diameter and did not react to light. V & VII: The corneal reflexes were present bilaterally, but the left-sided reflex was diminished compared to the right. VIII: He did not respond to sounds and had no nystagmus. IX & X: Could not be tested because he was on a BiPAP mask. XI: The sternocleidomastoids and trapezii did not function. XII: Could not be tested. MOTOR SYSTEM: The tone was normal on the right and spastic on the left. Examination of muscle mass revealed mild wasting of the left upper and lower extremities. Examination of power could not be performed because even on applying deep painful stimuli, the only movements seen were minimal purposeful withdrawal in the right upper extremity, and reflex withdrawal in the lower extremities. He withdrew the right side more than the left. SENSORY EXAMINATION: He did not respond to deep pain, other than minimal purposeful withdrawal in the right upper extremity and reflex withdrawal in the lower extremities. REFLEXES: 0 at the biceps, triceps, brachioradialis, knees, and ankles. The plantar responses were extensor bilaterally. COORDINATION, STANCE & GAIT: Could not be tested. Impression/Recommendations Diagnostic Impression 1. Mr. 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 He was hospitalized after having seizures at his long-term. He was discovered to have a urinary tract infection and pneumonia. He continued to have recurrent seizures in the hospital with his last seizure at approximately 1 p.m on 09/23/17. 2. He continues to be poorly responsive. He continues to be seizure free. He is off BiPAP. He is on appropriate antibiotics. He is still acutely ill. 3. On neurological examination at this time, he can be aroused minimally on deep pain. He does not blink to threat. His eye movements were present on oculocephalic maneuvers. The corneal reflexes are present with the left side reflex diminished compared to the right. His left pupil is 3 mm and nonreactive. His right pupil cannot be visualized. He does not move to deep pain except for minimal purposeful withdrawal in the right upper extremity,and reflex withdrawal in both lower extremities, right > left, and his deep tendon reflexes are absent. His plantar responses are extensor bilaterally. 4. The CT scan of the brain without contrast reveals severe encephalomalacia in the right frontotemporoparietal area and less severe encephalomalacia in the left frontal area. 5. His latest laboratory data on my initial evaluation revealed that he was anemic with a hemoglobin of 12.6 G. His chemistry panel revealed that his BUN was elevated to 26, his glucose was elevated at 112, his AST was elevated at 45 , his alkaline phosphatase was elevated at 215, and his albumin was low at 3.0. His lactic acid was elevated to 12.4 on admission but was 1.2 later. His carbamazepine level was therapeutic at 6.8. His urinalysis revealed 3+ leukocyte esterase, 15 to 20 red blood cells per high-power field, and too numerous to count white blood cells per high-power field with many bacteria. 6. His chest x-ray revealed asymmetric right-sided opacities most pronounced at the medial right base consistent with pneumonic process. 7. The patient's history, neurological examination, laboratory data, and imaging studies are most compatible with breakthrough seizures in a patient who has had severe prior brain injury and an underlying seizure disorder, who was on relatively low doses of anticonvulsants and now has a superimposed urinary tract infection and pneumonia. 8. His seizures are now controlled. Recommendations 1. Continue present management. 2. Continue Keppra 1.5 G intravenously taken every 12 hours. 3. Continue Tegretol at his present dose. 4. Ativan should only be given for status epilepticus and not for every single seizure. It was made very clear to the nurse that should be done. 5. Correction of respiratory status as per Dr. Sharpe. 6. Treatment of infectious processes as per Dr. Murphy. 7. Observe closely. Watson Antunez M.D., M.S.P.Ana Laura. WATSON ANTUNEZ Sep 26, 2017 11:46
--- NOTE | 2017-09-26 17:10 | Infectious Diseases Prog Note ---
Assessment/Plan Assessment/Plan ASSESSMENT AND PLAN: 1. asp pna/hcap pna, sepsis, leukocytosis, morganella uti, hypothermia, sob, hypoxia, sc - yeast which is a colonizer - vancomycin and zosyn - monitor chest x-ray and labs - bipap, pulmonary treatment - last chest x-ray - worse, ? worsen pna vs edema 2. Seizures. 3. Cerebrovascular accident. 4. High risk for aspiration. 5. Dysphagia, G-tube. 6. Hypertension. 7. Hyperlipidemia. 8. Osteoporosis. 9. Chronic anticoagulation. 10. Gastrointestinal hemorrhage. 11. Cerebrovascular accident with weakness on the left side. 12. Allergies to phenytoin. 13. Social history is negative. 14. Family history is noncontributory. 15. MAR was noted. 16. Case discussed with RN. 17. Continue treatment per primary consultants. 18. Prognosis guarded. 19. BERNIE care. Subjective Constitutional: Reports: other - poorly responsive, on bipap; Denies: fever, fatigue HEENT: Reports: congestion Respiratory: Reports: shortness of breath Cardiovascular: Reports: chest pain Gastrointestinal/Abdominal: Denies: nausea, vomiting, diarrhea Genitourinary: Reports: other Neurologic: Reports: weakness, other - poorly responsive Psychiatric: Denies: depression Skin: Denies: rash Hematologic: Denies: bleeding Musculoskeletal: Denies: pain Allergies: Coded Allergies: PHENYTOIN (Unverified Allergy, Unknown, 09/22/17) Objective Vital Signs Last 24 Hour Vital Signs Date Time Temp Pulse Resp B/P (MAP) Pulse Ox O2 Delivery O2 Flow Rate FiO2 09/26/17 15:24 60 19 93 Facial 100 09/26/17 15:24 88 26 94 Non-Rebreather 15.0 100 09/26/17 15:14 83 21 91 Bi-pap 100 09/26/17 13:27 78 23 97 Facial 100 09/26/17 12:15 Non-Rebreather 16.0 09/26/17 12:14 100 09/26/17 12:00 96.6 95 20 137/68 (91) 95 96.6 09/26/17 12:00 79 09/26/17 10:30 79 31 96 Facial 100 09/26/17 09:30 100 09/26/17 09:30 96 140/100 09/26/17 09:28 93 23 92 Facial 100 09/26/17 08:00 16.0 100 09/26/17 08:00 Non-Rebreather 16.0 09/26/17 08:00 90 09/26/17 08:00 96.8 91 18 140/100 (113) 89 96.8 09/26/17 07:46 96 31 92 Non-Rebreather 15.0 100 09/26/17 07:36 90 32 94 Non-Rebreather 15.0 100 09/26/17 07:35 Non-Rebreather 15.0 100 09/26/17 07:35 93 Non-Rebreather 15.0 100 09/26/17 04:00 Non-Rebreather 16.0 09/26/17 04:00 16.0 09/26/17 04:00 98.3 90 25 140/62 (88) 97 98.3 09/26/17 03:38 90 09/26/17 01:58 103 26 97 Non-Rebreather 15.0 100 09/26/17 01:46 99 25 95 Non-Rebreather 15.0 100 09/26/17 00:00 Non-Rebreather 16.0 09/26/17 00:00 98.1 103 27 141/60 (87) 99 98.1 09/25/17 23:35 98 09/25/17 20:00 Non-Rebreather 16.0 09/25/17 20:00 98.2 115 24 138/47 (77) 97 98.2 09/25/17 20:00 16.0 09/25/17 19:55 118 35 96 Non-Rebreather 15.0 100 09/25/17 19:41 97 Non-Rebreather 15.0 100 09/25/17 19:41 Non-Rebreather 15.0 100 09/25/17 19:41 109 30 97 Non-Rebreather 15.0 100 09/25/17 19:06 108 09/25/17 17:02 158/69 (98) Height (Feet): 6 Height (Inches): 1.00 Weight (Pounds): 212 General Appearance: other - sob and on bipap HEENT: normocephalic, atraumatic, anicteric, mucous membranes moist Respiratory/Chest: respiratory distress, crackles/rales, rhonchi - bilaterally Cardiovascular: normal rate, regular rhythm, no gallop/murmur, no JVD Abdomen: normal bowel sounds, soft, non tender, no organomegaly, non distended Genitourinary: other - = condom catheter Extremities: no cyanosis Skin: no rash Neurologic/Psychiatric: motor weakness, other - poorly responsive and lethargic Lymphatic: no neck adenopathy Musculoskeletal: no effusion Objective 09/26 - chest x-ray - Comparison: 09/24/2017 Findings: Extensive bilateral diffuse interstitial and airspace consolidation or edema is again demonstrated, right greater than left, worsening bilaterally. The heart borders are largely obscured, heart not enlarged on previous exam. Impression: Worsening extensive bilateral diffuse interstitial and airspace infiltrates versus edema, over 2 days Dictated By: Naif Mckeon MD Microbiology Date/Time Source Procedure Growth Status 09/24/17 11:05 Blood Blood Culture - Preliminary NO GROWTH AFTER 24 HOURS Resulted 09/24/17 14:55 Sputum Induced Gram Stain - Final Resulted 09/24/17 14:55 Sputum Culture - Preliminary YEAST Resulted 09/23/17 03:33 Urine,Clean Catch Urine Culture - Final Morganella Morg Spp Morganii Complete 09/22/17 23:44 Rectum VRE Culture - Final NO VANCOMYCIN RESISTANT ENTEROCOCCUS ... Complete Microbiology Date/Time Source Procedure Growth Status 09/24/17 11:05 Blood Blood Culture - Preliminary NO GROWTH AFTER 24 HOURS Resulted 09/24/17 10:55 Blood Blood Culture - Preliminary NO GROWTH AFTER 24 HOURS Resulted 09/24/17 14:55 Sputum Induced Gram Stain - Final Resulted 09/24/17 14:55 Sputum Culture - Preliminary YEAST Resulted Laboratory Tests Test 09/25/17 21:10 09/26/17 04:00 09/26/17 07:46 Vancomycin Level Trough 18.6 ug/mL (5.0-12.0) H White Blood Count 8.4 K/UL (4.8-10.8) Red Blood Count 4.01 M/UL (4.70-6.10) L Hemoglobin 9.8 G/DL (14.2-18.0) L Hematocrit 31.4 % (42.0-52.0) L Mean Corpuscular Volume 78 FL (80-99) L Mean Corpuscular Hemoglobin 24.6 PG (27.0-31.0) L Mean Corpuscular Hemoglobin Concent 31.4 G/DL (32.0-36.0) L Red Cell Distribution Width 16.6 % (11.6-14.8) H Platelet Count 59 K/UL (150-450) L Mean Platelet Volume 10.3 FL (6.5-10.1) H Neutrophils (%) (Auto) % (45.0-75.0) Lymphocytes (%) (Auto) % (20.0-45.0) Monocytes (%) (Auto) % (1.0-10.0) Eosinophils (%) (Auto) % (0.0-3.0) Basophils (%) (Auto) % (0.0-2.0) Differential Total Cells Counted 100 Neutrophils % (Manual) 67 % (45-75) Lymphocytes % (Manual) 7 % (20-45) L Monocytes % (Manual) 1 % (1-10) Eosinophils % (Manual) 1 % (0-3) Basophils % (Manual) 0 % (0-2) Metamyelocytes % 2 % (0-0) H Band Neutrophils 22 % (0-8) H Platelet Estimate Decreased L Platelet Morphology Normal Hypochromasia 2+ Anisocytosis 1+ Microcytosis 1+ Target Cells Occasional Sodium Level 141 MMOL/L (136-145) Potassium Level 3.4 MMOL/L (3.5-5.1) L Chloride Level 106 MMOL/L (98-107) Carbon Dioxide Level 27 MMOL/L (21-32) Anion Gap 8 mmol/L (5-15) Blood Urea Nitrogen 20 mg/dL (7-18) H Creatinine 0.7 MG/DL (0.55-1.30) Estimat Glomerular Filtration Rate > 60 mL/min (>60) Glucose Level 101 MG/DL (74-106) Calcium Level 8.4 MG/DL (8.5-10.1) L Arterial Blood pH 7.380 (7.350-7.450) Arterial Blood Partial Pressure CO2 42.2 mmHg (35.0-45.0) Arterial Blood Partial Pressure O2 59.1 mmHg (75.0-100.0) L Arterial Blood HCO3 24.7 mmol/L (22.0-26.0) Arterial Blood Oxygen Saturation 90.4 % (92.0-98.0) L Arterial Blood Base Excess -0.4 Jed Test Positive Current Medications Medications (Trade) Dose Ordered Sig/Reid Route PRN Reason Start Time Stop Time Status Last Admin Dose Admin Acetaminophen (Tylenol) 320 mg Q4H PRN GT MILD pain 1-3/TEMP >100.5 09/23/17 03:45 10/23/17 03:44 Acetaminophen (Tylenol) 640 mg Q4H PRN GT moderate pain 09/23/17 03:45 10/23/17 03:44 09/24/17 18:02 Albuterol/ Ipratropium (Albuterol/ Ipratropium) 3 ml Q6HRT HHN 09/23/17 07:00 09/28/17 06:59 09/26/17 15:14 Amlodipine Besylate (Norvasc) 5 mg DAILY GT 09/25/17 14:45 10/25/17 14:44 09/26/17 09:30 Apixaban (Eliquis) 5 mg BID GT 09/23/17 09:00 10/23/17 08:59 09/23/17 17:50 Atorvastatin Calcium (Lipitor) 10 mg BEDTIME GT 09/23/17 21:00 10/23/17 20:59 09/25/17 20:36 Azithromycin 500 mg/Dextrose 275 ml @ 275 mls/hr Q24H IV 09/23/17 19:00 09/29/17 19:59 09/25/17 19:14 Carbamazepine (TEGretol) 300 mg Q8HR GT 09/23/17 06:00 10/23/17 05:59 09/26/17 14:25 Clonidine HCl (Catapres tab) 0.4 mg Q6H PRN GT For High Blood Pressure 09/25/17 17:30 10/25/17 17:29 Dextrose (Dextrose 50%) 25 ml STAT PRN IV Hypoglycemia 09/23/17 04:00 10/23/17 03:59 Dextrose (Dextrose 50%) 50 ml STAT PRN IV Hypoglycemia 09/23/17 04:00 10/23/17 03:59 09/24/17 06:48 Dextrose/ Electrolytes 1,000 ml @ 50 mls/hr Q20H IV 09/24/17 09:30 10/24/17 09:29 09/26/17 01:28 Levetiracetam 1500 mg/Dextrose 110 ml @ 220 mls/hr Q12HR IV 09/23/17 22:00 8/30/18 21:59 09/26/17 08:49 Lorazepam (Ativan 2mg/ml 1ml) 1 mg Q4H PRN IV For Seizures 09/23/17 04:30 09/30/17 04:29 09/23/17 12:57 Piperacillin Sod/ Tazobactam Sod 3.375 gm/Dextrose 100 ml @ 25 mls/hr Q8H IVPB 09/23/17 16:00 09/30/17 15:59 09/26/17 08:37 Vancomycin HCl (Vanco rx to dose) 1 ea DAILY PRN MISC Per rx protocol 09/23/17 15:15 10/23/17 15:14 Vancomycin/Sodium Chloride 250 ml @ 166.667 mls/hr Q8HR IVPB 09/24/17 22:00 09/29/17 21:59 09/26/17 14:24 Anibal Murphy MD Sep 26, 2017 17:10
[2017-09-26] MEDS: Azithromycin 500 MG in D5W 275 ML IV SCH (18:46)
--- NOTE | 2017-09-26 23:52 | Cardiology Progress Note ---
Assessment/Plan Assessment/Plan 1. Transient type 2 second-degree AV block, avoid AV anthony agents. Conservative management, no need for pacemaker implant at this time due to severe debilitation. Echo reveals normal LVEF. 2. Probably PAF, on Eliquis 3. History of CVA with left hemiparesis. 4. History of seizure disorder. 5. Thrombocytopenia 6. Severe pulmonary HTN. Subjective Subjective No evidence of AV anthony block in the past 72 hours. Sinus rhythm at 80. Facial mask O2. Objective Last 24 Hour Vital Signs Date Time Temp Pulse Resp B/P (MAP) Pulse Ox O2 Delivery O2 Flow Rate FiO2 09/26/17 23:31 80 32 93 Facial 100 09/26/17 20:45 81 29 93 Facial 100 09/26/17 20:40 96.4 88 33 117/69 (85) 91 96.4 09/26/17 20:00 100 09/26/17 20:00 Bi-pap 100.0 09/26/17 19:44 97 09/26/17 19:41 113 36 95 Bi-pap 100 09/26/17 19:26 89 36 91 Bi-pap 100 09/26/17 19:25 91 Bi-pap 100 09/26/17 19:25 89 36 91 Facial 100 09/26/17 19:25 Bi-pap 100 09/26/17 17:12 89 28 92 Full Face 100 09/26/17 16:00 78 09/26/17 16:00 Non-Rebreather 16.0 09/26/17 16:00 96.6 80 20 139/64 (89) 90 96.6 09/26/17 15:24 60 19 93 Full Face 100 09/26/17 15:24 88 26 94 Non-Rebreather 15.0 100 09/26/17 15:14 83 21 91 Bi-pap 100 09/26/17 13:27 78 23 97 Facial 100 09/26/17 12:15 Non-Rebreather 16.0 09/26/17 12:14 100 09/26/17 12:00 96.6 95 20 137/68 (91) 95 96.6 09/26/17 12:00 79 09/26/17 10:30 79 31 96 Facial 100 09/26/17 09:30 100 09/26/17 09:30 96 140/100 09/26/17 09:28 93 23 92 Facial 100 09/26/17 08:00 16.0 100 09/26/17 08:00 Non-Rebreather 16.0 09/26/17 08:00 90 09/26/17 08:00 96.8 91 18 140/100 (113) 89 96.8 09/26/17 07:46 96 31 92 Non-Rebreather 15.0 100 09/26/17 07:36 90 32 94 Non-Rebreather 15.0 100 09/26/17 07:35 Non-Rebreather 15.0 100 09/26/17 07:35 93 Non-Rebreather 15.0 100 09/26/17 04:00 Non-Rebreather 16.0 09/26/17 04:00 16.0 09/26/17 04:00 98.3 90 25 140/62 (88) 97 98.3 09/26/17 03:38 90 09/26/17 01:58 103 26 97 Non-Rebreather 15.0 100 09/26/17 01:46 99 25 95 Non-Rebreather 15.0 100 09/26/17 00:00 Non-Rebreather 16.0 09/26/17 00:00 98.1 103 27 141/60 (87) 99 98.1 Intake and Output 09/25/17 09/26/17 19:00 07:00 Intake Total 1330.000 ml 1478.3 ml Output Total 600 ml 500 ml Balance 730.000 ml 978.3 ml Intake Free Water 90 ml IV Total 1080.000 ml 1068.3 ml Tube Feeding 200 ml 240 ml Other 50 ml 80 ml Output Urine Total 600 ml 500 ml 2D Echo: EF 55-60%, Increased RAP ~15 mmHg, RVSP 68 mmHg Laboratory Tests Test 09/26/17 04:00 09/26/17 07:46 White Blood Count 8.4 K/UL (4.8-10.8) Red Blood Count 4.01 M/UL (4.70-6.10) L Hemoglobin 9.8 G/DL (14.2-18.0) L Hematocrit 31.4 % (42.0-52.0) L Mean Corpuscular Volume 78 FL (80-99) L Mean Corpuscular Hemoglobin 24.6 PG (27.0-31.0) L Mean Corpuscular Hemoglobin Concent 31.4 G/DL (32.0-36.0) L Red Cell Distribution Width 16.6 % (11.6-14.8) H Platelet Count 59 K/UL (150-450) L Mean Platelet Volume 10.3 FL (6.5-10.1) H Neutrophils (%) (Auto) % (45.0-75.0) Lymphocytes (%) (Auto) % (20.0-45.0) Monocytes (%) (Auto) % (1.0-10.0) Eosinophils (%) (Auto) % (0.0-3.0) Basophils (%) (Auto) % (0.0-2.0) Differential Total Cells Counted 100 Neutrophils % (Manual) 67 % (45-75) Lymphocytes % (Manual) 7 % (20-45) L Monocytes % (Manual) 1 % (1-10) Eosinophils % (Manual) 1 % (0-3) Basophils % (Manual) 0 % (0-2) Metamyelocytes % 2 % (0-0) H Band Neutrophils 22 % (0-8) H Platelet Estimate Decreased L Platelet Morphology Normal Hypochromasia 2+ Anisocytosis 1+ Microcytosis 1+ Target Cells Occasional Sodium Level 141 MMOL/L (136-145) Potassium Level 3.4 MMOL/L (3.5-5.1) L Chloride Level 106 MMOL/L (98-107) Carbon Dioxide Level 27 MMOL/L (21-32) Anion Gap 8 mmol/L (5-15) Blood Urea Nitrogen 20 mg/dL (7-18) H Creatinine 0.7 MG/DL (0.55-1.30) Estimat Glomerular Filtration Rate > 60 mL/min (>60) Glucose Level 101 MG/DL (74-106) Calcium Level 8.4 MG/DL (8.5-10.1) L Arterial Blood pH 7.380 (7.350-7.450) Arterial Blood Partial Pressure CO2 42.2 mmHg (35.0-45.0) Arterial Blood Partial Pressure O2 59.1 mmHg (75.0-100.0) L Arterial Blood HCO3 24.7 mmol/L (22.0-26.0) Arterial Blood Oxygen Saturation 90.4 % (92.0-98.0) L Arterial Blood Base Excess -0.4 Jed Test Positive Microbiology Date/Time Source Procedure Growth Status 09/24/17 11:05 Blood Blood Culture - Preliminary NO GROWTH AFTER 24 HOURS Resulted 09/24/17 10:55 Blood Blood Culture - Preliminary NO GROWTH AFTER 24 HOURS Resulted 09/24/17 14:55 Sputum Induced Gram Stain - Final Resulted 09/24/17 14:55 Sputum Culture - Preliminary YEAST Resulted Objective HEENT: Atraumatic and normocephalic. Anicteric. Right corneal ulceration. Left eye, pupil is reactive to light and accommodation. NECK: Cannot be assessed at this time. No carotid bruit. CARDIOVASCULAR SYSTEM: Normal S1, S2. Regular rate and rhythm. No murmurs, gallops, or rubs. PMI is at fourth intercostal space at the midclavicular line. LUNGS: Diminished breath sounds in both bases. ABDOMEN: Soft, nontender, and nondistended. Positive bowel sounds. Positive G- tube in place. EXTREMITIES: No evidence of edema, clubbing, or cyanosis. Juan Hogan MD Sep 26, 2017 23:52
[2017-09-27] VITALS: BP 123/65
[2017-09-27] MEDS: Albuterol/Ipratropium 3ml neb HHN SCH ×4 (01:11→19:26)
[2017-09-27 04:00] VITALS: BP_SYST 11; BP_SYST 140; BP_DIAS 71
[2017-09-27 05:15] LABS: HEMATOCRIT 36.7 % (42.0-52.0); HEMOGLOBIN 12.2 G/DL (14.2-18.0); MEAN CORPUSCULAR VOLUME 79 FL (80-99); PLATELET COUNT 71 K/UL (150-450); RED BLOOD COUNT 4.65 M/UL (4.70-6.10); WHITE BLOOD COUNT 8.6 K/UL (4.8-10.8)
[2017-09-27 05:17] LABS: ANION GAP 8 mmol/L (5-15); BLOOD UREA NITROGEN 19 mg/dL (7-18); CALCIUM 8.4 MG/DL (8.5-10.1); CARBON DIOXIDE 27 MMOL/L (21-32); CHLORIDE 108 MMOL/L (98-107); CREATININE 0.6 MG/DL (0.55-1.30); POTASSIUM 3.5 MMOL/L (3.5-5.1); SODIUM 143 MMOL/L (136-145)
[2017-09-27] MEDS: Vancomycin 750mg/NS 250ml IVPB SCH ×3 (06:36→22:05)
[2017-09-27] MEDS: carBAMazepine 200mg tab GT SCH ×3 (06:36→21:03)
[2017-09-27 08:00] VITALS: BP 136/63
[2017-09-27] MEDS: Eliquis 2.5mg tablet GT SCH ×2 (09:00→17:56)
[2017-09-27] MEDS: LEVETIRACETAM IV SCH ×2 (09:18→21:03)
[2017-09-27] MEDS: DEXTROSE IV SCH ×2 (09:18→21:03)
--- NOTE | 2017-09-27 10:07 | Pulmonology Progress Note ---
Assessment/Plan Assessment/Plan IMPRESSION: 1. Respiratory acidosis. resolved. 2. Acute respiratory failure. Back on BiPAP 3. Sepsis. 4. UTI. 5. Probable pneumonia. 6. Seizure disorder. 7. Previous CVA. 8. Aspiration pneumonia. 9. Hypertension. DISCUSSION: ABG better; returned to BiPAP Continue broad-spectrum antibiotics. ID following' Continue Tegretol and continue Keppra. I will follow carefully. Neuro consult noted Having hypoglycemic episodes; will continue dextrose and add tube feedings Cardiology consult noted for bradycardia prognosis remains poor Subjective Interval Events: Back on BiPAP Constitutional: Reports: no symptoms HEENT: Repors: no symptoms Respiratory: Reports: no symptoms Cardiovascular: Reports: no symptoms Gastrointestinal/Abdominal: Reports: no symptoms Allergies: Coded Allergies: PHENYTOIN (Unverified Allergy, Unknown, 09/22/17) Objective Last 24 Hour Vital Signs Date Time Temp Pulse Resp B/P (MAP) Pulse Ox O2 Delivery O2 Flow Rate FiO2 09/27/17 09:05 80 33 95 Facial 100 09/27/17 08:59 83 136/63 09/27/17 08:00 100 09/27/17 08:00 96.5 83 35 136/63 (87) 96 96.5 09/27/17 07:24 82 31 96 Bi-pap 100 09/27/17 07:09 83 33 93 Bi-pap 100 09/27/17 07:08 93 Bi-pap 100 09/27/17 07:08 Bi-pap 100 09/27/17 07:08 83 33 93 Facial 100 09/27/17 05:20 87 33 94 Facial 100 09/27/17 04:00 97.5 89 27 140/71 (94) 97 97.5 09/27/17 04:00 Bi-pap 100.0 09/27/17 04:00 88 09/27/17 04:00 100 09/27/17 03:21 84 32 93 Facial 100 09/27/17 01:26 95 34 93 Bi-pap 100 09/27/17 01:11 80 31 91 Facial 100 09/27/17 01:11 80 31 93 Bi-pap 100 09/27/17 00:00 80 09/27/17 00:00 97.5 88 30 123/65 (84) 93 97.5 09/27/17 00:00 Bi-pap 100.0 09/27/17 00:00 100 8/3/18 23:31 80 32 93 Facial 100 09/26/17 20:45 81 29 93 Facial 100 09/26/17 20:40 96.4 88 33 117/69 (85) 91 96.4 09/26/17 20:00 100 09/26/17 20:00 Bi-pap 100.0 09/26/17 19:44 97 09/26/17 19:41 113 36 95 Bi-pap 100 09/26/17 19:26 89 36 91 Bi-pap 100 09/26/17 19:25 91 Bi-pap 100 09/26/17 19:25 89 36 91 Facial 100 09/26/17 19:25 Bi-pap 100 09/26/17 17:12 89 28 92 Full Face 100 09/26/17 16:00 78 09/26/17 16:00 Non-Rebreather 16.0 09/26/17 16:00 96.6 80 20 139/64 (89) 90 96.6 09/26/17 15:24 60 19 93 Full Face 100 09/26/17 15:24 88 26 94 Non-Rebreather 15.0 100 09/26/17 15:14 83 21 91 Bi-pap 100 09/26/17 13:27 78 23 97 Facial 100 09/26/17 12:15 Non-Rebreather 16.0 09/26/17 12:14 100 09/26/17 12:00 96.6 95 20 137/68 (91) 95 96.6 09/26/17 12:00 79 09/26/17 10:30 79 31 96 Facial 100 Intake and Output 09/26/17 09/27/17 19:00 07:00 Intake Total 760 ml 1620.000 ml Output Total 425 ml 400 ml Balance 335 ml 1220.000 ml Intake Free Water 200 ml 150 ml IV Total 50 ml 1020.000 ml Tube Feeding 390 ml 330 ml Other 120 ml 120 ml Output Urine Total 425 ml 400 ml General Appearance: no acute distress HEENT: normocephalic Respiratory/Chest: chest wall non-tender, lungs clear Cardiovascular: normal peripheral pulses, normal rate Abdomen: normal bowel sounds Microbiology Date/Time Source Procedure Growth Status 09/24/17 11:05 Blood Blood Culture - Preliminary NO GROWTH AFTER 24 HOURS Resulted 09/24/17 10:55 Blood Blood Culture - Preliminary NO GROWTH AFTER 24 HOURS Resulted 09/24/17 14:55 Sputum Induced Gram Stain - Final Complete 09/24/17 14:55 Sputum Culture - Final Amy Tropicalis Complete Laboratory Tests 09/27/17 04:08: White Blood Count 8.6, Red Blood Count 4.65L, Hemoglobin 12.2L, Hematocrit 36.7L , Mean Corpuscular Volume 79L, Mean Corpuscular Hemoglobin 26.2L, Mean Corpuscular Hemoglobin Concent 33.2, Red Cell Distribution Width 17.0H, Platelet Count 71L, Mean Platelet Volume 12.3H, Neutrophils (%) (Auto) , Lymphocytes (%) (Auto) , Monocytes (%) (Auto) , Eosinophils (%) (Auto) , Basophils (%) (Auto) , Sodium Level 143, Potassium Level 3.5, Chloride Level 108H, Carbon Dioxide Level 27, Anion Gap 8, Blood Urea Nitrogen 19H, Creatinine 0.6, Estimat Glomerular Filtration Rate > 60, Glucose Level 101, Calcium Level 8.4L 09/27/17 06:59: Arterial Blood pH 7.355, Arterial Blood Partial Pressure CO2 43.5, Arterial Blood Partial Pressure O2 62.0L, Arterial Blood HCO3 23.7, Arterial Blood Oxygen Saturation 90.8L, Arterial Blood Base Excess -1.8, Jed Test Positive Current Medications Medications (Trade) Dose Ordered Sig/Reid Route PRN Reason Start Time Stop Time Status Last Admin Dose Admin Acetaminophen (Tylenol) 320 mg Q4H PRN GT MILD pain 1-3/TEMP >100.5 09/23/17 03:45 10/23/17 03:44 Acetaminophen (Tylenol) 640 mg Q4H PRN GT moderate pain 09/23/17 03:45 10/23/17 03:44 09/24/17 18:02 Albuterol/ Ipratropium (Albuterol/ Ipratropium) 3 ml Q6HRT HHN 09/23/17 07:00 09/28/17 06:59 09/27/17 07:09 Amlodipine Besylate (Norvasc) 5 mg DAILY GT 09/25/17 14:45 10/25/17 14:44 09/27/17 08:59 Apixaban (Eliquis) 5 mg BID GT 09/23/17 09:00 10/23/17 08:59 09/23/17 17:50 Atorvastatin Calcium (Lipitor) 10 mg BEDTIME GT 09/23/17 21:00 10/23/17 20:59 09/26/17 21:35 Azithromycin 500 mg/Dextrose 275 ml @ 275 mls/hr Q24H IV 09/23/17 19:00 09/29/17 19:59 09/26/17 18:46 Carbamazepine (TEGretol) 300 mg Q8HR GT 09/23/17 06:00 10/23/17 05:59 09/27/17 06:36 Clonidine HCl (Catapres tab) 0.4 mg Q6H PRN GT For High Blood Pressure 09/25/17 17:30 10/25/17 17:29 Dextrose (Dextrose 50%) 25 ml STAT PRN IV Hypoglycemia 09/23/17 04:00 10/23/17 03:59 Dextrose (Dextrose 50%) 50 ml STAT PRN IV Hypoglycemia 09/23/17 04:00 10/23/17 03:59 09/24/17 06:48 Dextrose/ Electrolytes 1,000 ml @ 50 mls/hr Q20H IV 09/24/17 09:30 10/24/17 09:29 09/26/17 21:01 Levetiracetam 1500 mg/Dextrose 110 ml @ 220 mls/hr Q12HR IV 09/23/17 22:00 10/23/17 21:59 09/27/17 09:18 Lorazepam (Ativan 2mg/ml 1ml) 1 mg Q4H PRN IV For Seizures 09/23/17 04:30 09/30/17 04:29 09/23/17 12:57 Piperacillin Sod/ Tazobactam Sod 3.375 gm/Dextrose 100 ml @ 25 mls/hr Q8H IVPB 09/23/17 16:00 09/30/17 15:59 09/27/17 08:58 Vancomycin HCl (Vanco rx to dose) 1 ea DAILY PRN MISC Per rx protocol 09/23/17 15:15 10/23/17 15:14 Vancomycin/Sodium Chloride 250 ml @ 166.667 mls/hr Q8HR IVPB 09/24/17 22:00 09/29/17 21:59 09/27/17 06:36 Ochoa Sharpe MD Sep 27, 2017 10:07
[2017-09-27] MEDS ORDERED: NS 275ml ONE (10:51)
[2017-09-27 12:00] VITALS: BP 133/52
--- NOTE | 2017-09-27 15:39 | Neurology Progress Note ---
Interim History Interim History Interim History Mr. Guo can be aroused. He opens his eyes on painful stimulation. He also withdraws his right upper extremity more purposefully to deep pain. He is non verbal and does not follow commands. He continues to be poorly responsive. He continues to be seizure free. He is on BiPAP. Review of Systems Neuro Review of Systems Unable to obtain. Objective Physical Exam Last Vital Signs Date Time Temp Pulse Resp B/P (MAP) Pulse Ox O2 Delivery O2 Flow Rate FiO2 09/27/17 14:50 92 31 95 Facial 100 09/27/17 12:00 100.0 09/27/17 12:00 94.2 133/52 (79) 94.2 Laboratory Tests Test 09/27/17 04:08 09/27/17 06:59 White Blood Count 8.6 K/UL (4.8-10.8) Red Blood Count 4.65 M/UL (4.70-6.10) L Hemoglobin 12.2 G/DL (14.2-18.0) L Hematocrit 36.7 % (42.0-52.0) L Mean Corpuscular Volume 79 FL (80-99) L Mean Corpuscular Hemoglobin 26.2 PG (27.0-31.0) L Mean Corpuscular Hemoglobin Concent 33.2 G/DL (32.0-36.0) Red Cell Distribution Width 17.0 % (11.6-14.8) H Platelet Count 71 K/UL (150-450) L Mean Platelet Volume 12.3 FL (6.5-10.1) H Neutrophils (%) (Auto) % (45.0-75.0) Lymphocytes (%) (Auto) % (20.0-45.0) Monocytes (%) (Auto) % (1.0-10.0) Eosinophils (%) (Auto) % (0.0-3.0) Basophils (%) (Auto) % (0.0-2.0) Sodium Level 143 MMOL/L (136-145) Potassium Level 3.5 MMOL/L (3.5-5.1) Chloride Level 108 MMOL/L (98-107) H Carbon Dioxide Level 27 MMOL/L (21-32) Anion Gap 8 mmol/L (5-15) Blood Urea Nitrogen 19 mg/dL (7-18) H Creatinine 0.6 MG/DL (0.55-1.30) Estimat Glomerular Filtration Rate > 60 mL/min (>60) Glucose Level 101 MG/DL (74-106) Calcium Level 8.4 MG/DL (8.5-10.1) L Arterial Blood pH 7.355 (7.350-7.450) Arterial Blood Partial Pressure CO2 43.5 mmHg (35.0-45.0) Arterial Blood Partial Pressure O2 62.0 mmHg (75.0-100.0) L Arterial Blood HCO3 23.7 mmol/L (22.0-26.0) Arterial Blood Oxygen Saturation 90.8 % (92.0-98.0) L Arterial Blood Base Excess -1.8 Jed Test Positive Neurologic Exam Objective PHYSICAL EXAMINATION: GENERAL: He is a well-developed, well-nourished, black gentleman, lying in bed, in no acute distress. HEAD: Normocephalic with right frontotemporoparietal craniotomy. EENT: Benign except for opacified right cornea. NECK: No neck rigidity was observed. NEUROLOGICAL EXAMINATION: MENTAL STATUS EXAMINATION: He can be aroused minimally on deep pain. He opens his eyes on painful stimulation. He however is non verbal and does not follow commands. He continues to be poorly responsive. Further mental status testing is thus impossible. SPEECH: Could not be tested. LANGUAGE: Could not be tested. CRANIAL NERVE EXAMINATION: II: He did not blink to threat. He had a right-sided corneal opacity. III, IV & : External ocular movements were present on oculocephalic maneuvers. The right pupil could not be visualized. The left pupil was 3 mm in diameter and did not react to light. V & VII: The corneal reflexes were present bilaterally, but the left-sided reflex was diminished compared to the right. VIII: He did not respond to sounds and had no nystagmus. IX & X: Could not be tested because he was on a BiPAP mask. XI: The sternocleidomastoids and trapezii did not function. XII: Could not be tested. MOTOR SYSTEM: The tone was normal on the right and spastic on the left. Examination of muscle mass revealed mild wasting of the left upper and lower extremities. Examination of power could not be performed because even on applying deep painful stimuli, the only movements seen were purposeful withdrawal in the right upper extremity, and reflex withdrawal in the lower extremities. He withdrew the right side more than the left. SENSORY EXAMINATION: He did not respond to deep pain, other purposeful withdrawal in the right upper extremity and reflex withdrawal in the lower extremities. REFLEXES: 0 at the biceps, triceps, brachioradialis, knees, and ankles. The plantar responses were extensor bilaterally. COORDINATION, STANCE & GAIT: Could not be tested. Impression/Recommendations Diagnostic Impression 1. Mr. 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 He was hospitalized after having seizures at his [facility]. He was discovered to have a urinary tract infection and pneumonia. He continued to have recurrent seizures in the hospital with his last seizure at approximately 1 p.m on 09/23/17. 2. He can be aroused. He opens his eyes on painful stimulation. He also withdraws his right upper extremity more purposefully to deep pain. He is non verbal and does not follow commands. He continues to be poorly responsive. He continues to be seizure free. He is on BiPAP. 3. On neurological examination at this time, he can be aroused minimally on deep pain. He does not blink to threat. His eye movements are present on oculocephalic maneuvers. The corneal reflexes are present with the left side reflex diminished compared to the right. His left pupil is 3 mm and nonreactive. His right pupil cannot be visualized. He does not move to deep pain except for purposeful withdrawal in the right upper extremity and reflex withdrawal in both lower extremities, right > left, and his deep tendon reflexes are absent. His plantar responses are extensor bilaterally. 4. The CT scan of the brain without contrast reveals severe encephalomalacia in the right frontotemporoparietal area and less severe encephalomalacia in the left frontal area. 5. His latest laboratory data on my initial evaluation revealed that he was anemic with a hemoglobin of 12.6 G. His chemistry panel revealed that his BUN was elevated to 26, his glucose was elevated at 112, his AST was elevated at 45 , his alkaline phosphatase was elevated at 215, and his albumin was low at 3.0. His lactic acid was elevated to 12.4 on admission but was 1.2 later. His carbamazepine level was therapeutic at 6.8. His urinalysis revealed 3+ leukocyte esterase, 15 to 20 red blood cells per high-power field, and too numerous to count white blood cells per high-power field with many bacteria. 6. His chest x-ray revealed asymmetric right-sided opacities most pronounced at the medial right base consistent with pneumonic process. 7. The patient's history, neurological examination, laboratory data, and imaging studies are most compatible with breakthrough seizures in a patient who has had severe prior brain injury and an underlying seizure disorder, who was on relatively low doses of anticonvulsants and now has a superimposed urinary tract infection and pneumonia. 8. His seizures are now controlled. Recommendations 1. Continue present management. 2. Continue Keppra 1.5 G intravenously taken every 12 hours. 3. Continue Tegretol at his present dose. 4. Ativan should only be given for status epilepticus and not for every single seizure. It was made very clear to the nurse that should be done. 5. Correction of respiratory status as per Dr. Sharpe. 6. Treatment of infectious processes as per Dr. Murphy. 7. Observe closely. Watson Antunez M.D., M.S.[facility]. WATSON ANTUNEZ Sep 27, 2017 15:39
[2017-09-27] MEDS ORDERED: Tubing IV Secondary IV ONE (15:57)
[2017-09-27 16:00] VITALS: BP 139/58
[2017-09-27] MEDS: Azithromycin 500 MG in D5W 275 ML IV SCH (18:31)
[2017-09-27 20:00] VITALS: BP 152/91
[2017-09-28] VITALS: BP 147/90
[2017-09-28] MEDS: Albuterol/Ipratropium 3ml neb HHN SCH (01:43)
[2017-09-28 04:00] VITALS: BP 147/95
[2017-09-28 04:28] LABS: HEMATOCRIT 34.7 % (42.0-52.0); HEMOGLOBIN 10.9 G/DL (14.2-18.0); MEAN CORPUSCULAR VOLUME 78 FL (80-99); PLATELET COUNT 89 K/UL (150-450); RED BLOOD COUNT 4.47 M/UL (4.70-6.10); RED CELL DISTRIBUTION WIDTH 16.4 % (11.6-14.8); WHITE BLOOD COUNT 11.3 K/UL (4.8-10.8)
[2017-09-28 04:39] LABS: ANION GAP 6 mmol/L (5-15); BLOOD UREA NITROGEN 24 mg/dL (7-18); CALCIUM 8.1 MG/DL (8.5-10.1); CARBON DIOXIDE 27 MMOL/L (21-32); CHLORIDE 109 MMOL/L (98-107); CREATININE 0.6 MG/DL (0.55-1.30); POTASSIUM 3.8 MMOL/L (3.5-5.1); SODIUM 142 MMOL/L (136-145)
[2017-09-28] MEDS: Vancomycin 750mg/NS 250ml IVPB SCH (05:41)
[2017-09-28] MEDS: carBAMazepine 200mg tab GT SCH (05:41)
[2017-09-28] MEDS ORDERED: Tubing IV Secondary IV ONE (07:19)
--- NOTE | 2017-09-28 07:22 | Emergency Room Report ---
History of Present Illness General Chief Complaint: Seizure Source: Medical Record Present Illness Allergies: Coded Allergies: PHENYTOIN (Unverified Allergy, Unknown, 09/22/17) Nursing Documentation-[facility] Past Medical History Deferred: Patient Unconscious Past Medical History: No History, Except For Hx Cardiac Problems: Yes Hx Hypertension: Yes Hx Diabetes: Yes Hx Cancer: No Hx Gastrointestinal Problems: Yes - gtube, peptic ulcer, Hx Neurological Problems: Yes - failure to thrive Hx Cerebrovascular Accident: Yes - Hemiplegia /Hemiparesis left side Hx Transient Ischemic Attacks: Yes Hx Seizures: Yes - unspecified convulsions Physical Exam Vital Signs Date Time Temp Pulse Resp B/P (MAP) Pulse Ox O2 Delivery O2 Flow Rate FiO2 09/24/17 07:41 104 35 100 Full Face 70 09/24/17 08:00 16.0 09/24/17 09:00 98.5 152/59 (90) 98.5 Procedures Critical Care Time Critical Care Time 15 minutes for critical presentation multiple reevaluation, discussing case with attending not including ay procedural Central Line Central Line : Consent: Emergent Central Line Lumen: triple Maximal Sterile Barrier Tech: yes cap, yes mask, yes sterile gown, yes sterile gloves, yes large sterile sheet, yes hand hygiene, yes chlorhexidine prep Central Line Postion: femoral (R) Complications: none Central Line Post Position: sutured Attempts: One Patient Tolerated: Well Complications: None CPR/Code Blue CPR/Code Blue Narrative I was called to a CODE BLUE Upon arrival the patient is in asystole CPR is in progress Accu-Chek revealed glucose of 86 on rapid secondary evaluation patient is unresponsive no breath sounds and asystole Left pupil is approximately 4 mm and fixed Please refer to the code sheet for full specifics, however patient was given bicarbonate, glucose continued epinephrine Patient was intubated with 7.5 ET tube There was copious amounts of vomitus in the oral mucosa After intubation there was also increased frothiness throughout the ET tube which was suctioned, Pulses were regained for a short period patient has central line placement, and dopamine drip was initiated however very rapidly patient deteriorated again and became asystolic After multiple intervention all efforts appear futile Patient lastly has asystole no palpable pulses And the patient was pronounced at 7:12 Intubation Intubation : Consent: Emergent Intubation Method: orotracheal Tube Size (cm): 7.5 Breath Sounds after Intubation: equal Intubation Complications: no complications Post Intubation Xray: No Attempts: One Patient Tolerated: Well Complications: None Medical Decision Making Diagnostic Impression: Primary Impression: Epileptic seizure, generalized Additional Impressions: Respiratory failure with hypoxia Qualified Codes: J96.21 - Acute and chronic respiratory failure with hypoxia Healthcare-associated pneumonia Aspiration pneumonia Qualified Codes: J69.0 - Pneumonitis due to inhalation of food and vomit Sepsis Qualified Codes: A41.9 - Sepsis, unspecified organism Lactic acidosis Cardiopulmonary arrest Last Vital Signs Date Time Temp Pulse Resp B/P (MAP) Pulse Ox O2 Delivery O2 Flow Rate FiO2 09/28/17 05:19 105 27 92 Facial 100 09/28/17 04:00 100.0 09/28/17 04:00 98.1 147/95 (112) 98.1 Disposition: Condition: Referrals: NOT CHOSEN IPA/,REFERRING Yanely Pringle DO Sep 28, 2017 07:22
--- NOTE | 2017-10-01 11:23 | Discharge Summary ---
Discharge Summary Discharge Summary _ SUMMARY DATE OF ADMISSION: 09/23/2017 DATE OF EXPIRATION: 09/28/2017 REASON FOR ADMISSION: 62 years old male, resident of assisted facility ,with past medical history of diabetes mellitus, hypertension, CVA WITH left hemiplegia, seizure disorder, bedbound, dysphagia, G-tube, on chronic anticoagulation, presented after witnessed seizure for 10 minutes. No reported fever or chills , no nausea or vomiting . Upon evaluation patient was tachycardic, tachypneic, hypoxic and required 100 % nonrebreathing mask, with pulse oximetry of 88. Laboratory workup revealed no leukocytosis, hemoglobin 12.6, hematocrit 40.1. Potassium 3.3 . BUN 26, creatinine 0.8 . Lactic acid -12.4. Troponin negative. EKG revealed sinus tachycardia , but no acute ischemic changes Chest x-ray revealed asymmetric right-sided opacities, most pronounced at the medial right base. CT of the head revealed no acute bleeding or midline shift but showed extensive chronic appearing postischemic posttraumatic changes with evidence of severe encephalomalacia involving the right frontal parietal and temporal lobes. Some encephalomalacia noted in the left frontal lobe as well. Urinalysis with evidence of UTI Patient admitted with diagnoses of sepsis, healthcare associated pneumonia, possible aspiration pneumonia, respiratory failure with hypoxia, urinary tract infection, lactic acidosis, epileptic seizures generalized, hypertension, history of CVA. CONSULTANTS: tutoring assistant Dr. Hogan neurologist Dr. Trevizo ID specialist Dr. Murphy HOSPITAL COURSE: Patient admitted to [facility]. ID and neurology consult was requested. Patient started on IV hydration . Patient started on BiPAP . Patient was followed up with daily ABG. Settings were titrated as needed. Patient was followed up with CXR. Pulmonary toilet provided. Patient was started on empiric antibiotics. Patient with leukocytosis on September 24 - .3. Overnight after admission patient had several seizures , and received Versed. Infectious disease specialist closely followed. Blood culture revealed Staph coagulase negative. Urine culture revealed Morganella. Repeated blood culture were negative. Sputum culture revealed Amy, which was colonizer as per ID specialist. IV antibiotic regimen was optimized as per ID specialist recommendations. Per ID, patient had healthcare associated pneumonia versus aspiration pneumonia . Leukocytosis resolved , intermittent hypothermia. Tube feeding resumed via G-tube with strict aspiration reflux precautions Neurologist closely followed. Per neurologist , patient history, neurological examination, laboratory data and imaging studies were most compatible with breakthrough seizure in the patient with history of severe prior brain injury and underlying seizure disorder. Seizure precautions were maintained. Patient was on intravenous Keppra and Tegretol. Per neurologist, Ativan to be given only for status epilepticus, but not for every single seizure. Paper Sales Manager consult was requested due to bradycardia. Paper Sales Manager closely followed. Patient demonstrated transient type II second-degree AV Block. All AV nodular agents were stopped, and tutoring assistant recommended to avoid them in future. Paper Sales Manager recommended conservative management. No pacemaker implantation was planned due to severe debilitation. Echocardiogram revealed preserved ejection fraction of 55-60%, no evidence of left ventricular hypertrophy, normal left ventricular chamber size, systolic function and wall motion to extent visualized. Grade 1 diastolic dysfunction. Right ventricular systolic pressure of 68 consistent with severe pulmonary hypertension. According to tutoring assistant , patient likely have paroxysmal atrial fibrillation and Eliquis was continued Blood pressure was managed with calcium channel fei . Statin was continued Patient noted to have hypoglycemic episodes. Patient was continued on IV fluids with dextrose and tube feedings. Platelet count was closely monitored, remained at the baseline, the lowest being 59 . Hemoglobin and hematocrit were closely monitored with goal to keep hemoglobin above 7. [email or web address] developer on 09/28 patient suffered from cardiopulmonary arrest. Patient was in asystole. Blood sugar was stable-86. Patient was unresponsive with left pupil 4 mm, fixed. Patient was emergently intubated Unfortunately, despite multiply interventions, all efforts appeared to be futile. Patient remained in asystole. Patient was pronounced at 7:12 AM on 09/28/17 Cause of : cardiopulmonary arrest FINAL DIAGNOSES: Sepsis with Staphylococcus coagulase negative bacteremia Acute hypoxemic respiratory failure Healthcare associated pneumonia Possible aspiration pneumonia Morganella UTI Status post cardiopulmonary arrest breakthrough seizure with history of prior brain injury and underlying seizure disorder Bradycardia with transient type II second-degree AV block Probable paroxysmal atrial fibrillation History of CVA with left hemiparesis Severe pulmonary hypertension Hypertension Lactic acidosis Thrombocytopenia I have been assigned to dictate discharge summary for this account. I was not involved in the patient's management. Amada Cruz NP Oct 01, 2017 11:23
== END 2017-09-28 07:20 | disposition expired | DRG 720 ==
LOC: EDBD 21:37 → EMR 23:10 → EDBEDREQ 23:46 → 2W 09-23 01:30 → EDBEDREQ 09-23 01:44 → 2W 09-27 16:56
PROC: 06HM33Z Insertion of Infusion Device into Right Femoral Vein, Percutaneous Approach (ICD-10-PCS; principal; 2017-09-28)
PROC: 5A12012 Performance of Cardiac Output, Single, Manual (ICD-10-PCS; 2017-09-28)
PROC: 0BH17EZ Insertion of Endotracheal Airway into Trachea, Via Natural or Artificial Opening (ICD-10-PCS; 2017-09-28)
DX: A41.89 Other specified sepsis (principal); J96.21 Acute and chronic respiratory failure with hypoxia; R40.2124 Coma scale, eyes open, to pain, 24 hours or more after hospital admission; R40.20 Unspecified coma; J69.0 Pneumonitis due to inhalation of food and vomit; E87.2 Acidosis; D69.6 Thrombocytopenia, unspecified; G40.901 Epilepsy, unspecified, not intractable, with status epilepticus; I48.0 Paroxysmal atrial fibrillation; Z74.01 Bed confinement status; Z93.1 Gastrostomy status; I10 Essential (primary) hypertension; M81.0 Age-related osteoporosis without current pathological fracture; I69.954 Hemiplegia and hemiparesis following unspecified cerebrovascular disease affecting left non-dominant side; R40.2314 Coma scale, best motor response, none, 24 hours or more after hospital admission; R40.2214 Coma scale, best verbal response, none, 24 hours or more after hospital admission; Z79.01 Long term (current) use of anticoagulants; I44.1 Atrioventricular block, second degree; K92.2 Gastrointestinal hemorrhage, unspecified; F03.90 Unspecified dementia, unspecified severity, without behavioral disturbance, psychotic disturbance, mood disturbance, and anxiety; G93.89 Other specified disorders of brain; E78.5 Hyperlipidemia, unspecified; E16.2 Hypoglycemia, unspecified; N39.0 Urinary tract infection, site not specified; B96.89 Other specified bacterial agents as the cause of diseases classified elsewhere; R68.0 Hypothermia, not associated with low environmental temperature; I27.20 Pulmonary hypertension, unspecified
CPT/HCPCS: 36415; 36600; 70450; 71045; 80048; 80053; 80156; 80202; 81003; 82164; 82550; 82553; 82803; 82962; 83605; 84484; 85007; 85025; 85610; 85730; 86738; 87040; 87070; 87081; 87086; 87181; 87205; 92950; 93005; 93306; 94640; 94660; 94664; 94760; J7620